=== PATIENT | male | born 1935 | race Caucasian/White ===

== ENCOUNTER 2018-04-03 06:17 | Inpatient (IN) | payer MEDICARE, OTHER ==
[2018-04-03] MEDS ORDERED: ACETAMINOPHEN 325 MG TABLET PO ONE (06:47)
[2018-04-03] MEDS ORDERED: ONDANSETRON HCL INJ/PF 4 MG/2 ML SDV IV ONE (07:25)
[2018-04-03] MEDS ORDERED: MORPHINE SULFATE 10 MG/ML INJ IV ONE (07:25)
[2018-04-03 08:21] LABS: ALANINE AMINOTRANSFERASE 21 U/L (21-72); ALBUMIN 4.1 g/dL (3.5-5.0); ALKALINE PHOSPHATASE 75 U/L (38-126); ANION GAP 12 (5-19); ASPARTATE AMINO TRANSFERASE 31 U/L (17-59); BILIRUBIN,DIRECT 0.1 mg/dL (0.0-0.4); BILIRUBIN,TOTAL 1.1 mg/dL (0.2-1.3); BLOOD UREA NITROGEN 13 mg/dL (7-20); CALCIUM 9.9 mg/dL (8.4-10.2); CARBON DIOXIDE 29 mmol/L (22-30); CHLORIDE 102 mmol/L (98-107); GLUCOSE 115 mg/dL (75-110); POTASSIUM 4.4 mmol/L (3.6-5.0); SODIUM 143.1 mmol/L (137-145); TOTAL PROTEIN 7.2 g/dL (6.3-8.2)
--- NOTE | 2018-04-03 08:46 | ER Document Report ---
ED Fall - General Chief Complaint: Fall Stated Complaint: FALL Time Seen by Provider: 04/03/18 07:15 Notes: Patient is an 82-year-old male resident of [facility] who presents to the emergency room with a right knee pain. Patient states he was trying to get out of bed when he slipped and fell landing on his right hip. Patient is currently complaining of right groin and right knee pain. Patient denies hitting his head or loss of consciousness or vomiting. Patient is alone in the hospital room, paperwork from [employer] does state that the patient has a history of dementia. Patient is able to tell you the date and current events. Patient states only pain is right hip. Patient denies feeling lightheaded, dizzy, chest pain or shortness of breath. Past medical history: COPD, dementia, GERD, hyperlipidemia, hypertension Medications: Albuterol, potassium, Prilosec, simvastatin, Lasix, Aricept, aspirin Allergies: Altace Patient is a DNR, with paperwork at patient's bedside. TRAVEL OUTSIDE OF THE [place] IN LAST 30 DAYS: Yes - Related data Allergies/Adverse Reactions: No Known Allergies Allergy (Verified 10/14/15 16:46) Past Medical History - General Information source: Patient, Transfer Record - Social History Smoking Status: Unknown if Ever Smoked Lives with: [facility] Family History: Reviewed & Not Pertinent Patient has suicidal ideation: No Patient has homicidal ideation: No - Past Medical History Cardiac Medical History: Reports: Hx Hypercholesterolemia, Hx Hypertension Pulmonary Medical History: Reports: Hx Bronchitis, Hx COPD Renal/ Medical History: Denies: Hx Peritoneal Dialysis Musculoskeletal Medical History: Reports Hx Arthritis Psychiatric Medical History: Reports: Hx Dementia Past Surgical History: Reports: Hx Orthopedic Surgery - Left knee replacement - Immunizations Hx Diphtheria, Pertussis, Tetanus Vaccination: Yes Hx Pneumococcal Vaccination: 01/11/12 Review of Systems - Review of Systems Constitutional: No symptoms reported EENT: No symptoms reported Cardiovascular: No symptoms reported Respiratory: No symptoms reported Gastrointestinal: See HPI. denies: Vomiting Genitourinary: No symptoms reported Male Genitourinary: No symptoms reported Musculoskeletal: See HPI Skin: No symptoms reported Hematologic/Lymphatic: No symptoms reported Neurological/Psychological: See HPI Physical Exam - Vital signs Vitals: Temp Pulse Resp BP Pulse Ox 98.3 F 59 L 18 169/63 H 98 04/03/18 06:23 04/03/18 06:23 04/03/18 06:23 04/03/18 06:23 04/03/18 06:23 - Notes Notes: GENERAL: Alert, interacts well. No acute distress. HEAD: Normocephalic, atraumatic. EYES: Pupils equal, round, and reactive to light. Extraocular movements intact. ENT: Oral mucosa moist, tongue midline. Nares patent, no nasal septal hematoma, TM's intact, no hemotympanum NECK: Full range of motion. Supple. Trachea midline. LUNGS: Clear to auscultation bilaterally, no wheezes, rales, or rhonchi. No respiratory distress. HEART: Regular rate and rhythm. No murmur ABDOMEN: Soft, non-tender. Non-distended. Bowel sounds present in all 4 quadrants. EXTREMITIES: Moves all 4 extremities spontaneously. No edema, normal radial and dorsalis pedis pulses bilaterally. No cyanosis. Right hip externally rotated, right knee bent in position of comfort for patient. PMS present bilateral lower extremities. Abrasion noted right knee. BACK: no cervical, thoracic, lumbar midline tenderness. No saddle anesthesia, normal distal neurovascular exam. NEUROLOGICAL: Alert and oriented x3. Normal speech. cranial nerves II through XII grossly intact. PSYCH: Normal affect, normal mood. SKIN: Warm, dry, normal turgor. Course - Re-evaluation Re-evalutation: Discussed case with Dr. Grady who requests admitting the patient to the hospitalist. Discussed case with Dr Barrett who agrees with admission. Patiently currently sleeping in the emergency room without pain after administration of Dilaudid. - Vital Signs Vital signs: Temp Pulse Resp BP Pulse Ox 97.7 F 97 20 162/75 H 95 04/03/18 18:00 04/03/18 18:00 04/03/18 18:00 04/03/18 18:00 04/03/18 18:00 - Laboratory Result Diagrams: 04/03/18 09:30 04/03/18 07:43 Laboratory results interpreted by me: 04/03/18 04/03/18 07:43 09:30 WBC 12.0 H RDW 14.4 H Seg Neutrophils % 80.0 H Lymphocytes % 10.3 L Absolute Neutrophils 9.6 H Glucose 115 H Discharge - Discharge Clinical Impression: Fracture of proximal end of left femur Qualifiers: Encounter type: initial encounter Fracture type: closed Qualified Code(s): S72.002A - Fracture of unspecified part of neck of left femur, initial encounter for closed fracture Condition: Stable Disposition: ADMITTED INPATIENT Admitting Provider: [facility] Admitted: Surgical Floor
--- NOTE | 2018-04-03 08:56 | RADIOLOGY REPORT (SQ) ---
EXAM DESCRIPTION: HIP RIGHT AP/LATERAL COMPLETED DATE/TIME: 04/03/2018 8:39 am REASON FOR STUDY: pain rolled over in bed, felt a pop, sudden right hip pain COMPARISON: None. NUMBER OF VIEWS: Two views. TECHNIQUE: AP pelvis and additional frog-leg view of the right hip. LIMITATIONS: None. FINDINGS: MINERALIZATION: Osteopenic RIGHT HIP: Acute non angulated intertrochanteric fracture right proximal femur. Mild medial displace ment of the lesser trochanter. Right hip joint space is maintained. No dislocation LEFT HIP: No fracture or dislocation. No worrisome bone lesions. PUBIS AND ISCHIUM: No fracture. PELVIS: No fracture. SACRUM: No fracture or dislocation. No worrisome bone lesions. LOWER LUMBAR SPINE: No fracture or dislocation. No worrisome bone lesions. No significant disc disea se. SOFT TISSUES: Surgical clips in the right and left internal iliac regions. Atherosclerotic arterial vascular calcification OTHER: No other significant finding. IMPRESSION: Acute nonangulated right proximal femoral intertrochanteric fracture. TECHNICAL DOCUMENTATION: JOB ID: [id number]- All Rights Reserved Reading location - IP/workstation name: [email or web address]
--- NOTE | 2018-04-03 08:57 | RADIOLOGY REPORT (SQ) ---
EXAM DESCRIPTION: FEMUR RIGHT COMPLETED DATE/TIME: 04/03/2018 8:40 am REASON FOR STUDY: pain COMPARISON: Right hip and right knee films same date NUMBER OF VIEWS: Two views. TECHNIQUE: Two radiographic images acquired of the right femur to include hip and knee in at least o ne projection. LIMITATIONS: None. FINDINGS: MINERALIZATION: Osteopenic BONES: Acute right proximal femur intertrochanteric fracture with mild medial displacement of the les ser trochanter fragment. Remainder of the right femur is intact. SOFT TISSUES: No obvious swelling or foreign body. OTHER: No other significant finding. IMPRESSION: Acute right proximal femur intertrochanteric fracture with mild medial displacement of t he lesser trochanter fragment. TECHNICAL DOCUMENTATION: JOB ID: [id number] [employer]- All Rights Reserved Reading location - IP/workstation name: [email or web address]
--- NOTE | 2018-04-03 08:59 | RADIOLOGY REPORT (SQ) ---
EXAM DESCRIPTION: KNEE RIGHT 4 VIEWS COMPLETED DATE/TIME: 04/03/2018 8:39 am REASON FOR STUDY: pain COMPARISON: None. NUMBER OF VIEWS: Two views. TECHNIQUE: AP and lateral radiographic images acquired of the right knee. LIMITATIONS: Limited lateral view FINDINGS: MINERALIZATION: Normal. BONES: No acute fracture. JOINT: No effusion.High-grade joint space narrowing along the medial compartment, lateral compartment , and patellofemoral compartment right knee SOFT TISSUES: No soft tissue swelling. No radio-opaque foreign body. OTHER: No other significant finding. IMPRESSION: No acute fracture right knee. Tricompartment osteoarthritis TECHNICAL DOCUMENTATION: JOB ID: [id number] [employer]- All Rights Reserved Reading location - IP/workstation name: [email or web address]
[2018-04-03] MEDS ORDERED: HYDROMORPHONE HCL INJ/PF 2 MG/ML AMPULE IV ONE ×2 (09:29→12:13)
[2018-04-03 09:40] LABS: ABSOLUTE BASOPHILS # (AUTO) 0.1 10^3/uL (0.0-0.2); ABSOLUTE EOSINOPHILS # (AUTO) 0.3 10^3/uL (0.0-0.6); ABSOLUTE LYMPHOCYTES (AUTO) 1.2 10^3/uL (0.5-4.7); ABSOLUTE MONOCYTES (AUTO) 0.8 10^3/uL (0.1-1.4); ABSOLUTE NEUT (AUTO) 9.6 10^3/uL (1.7-8.2); BASOPHILS % (AUTO) 0.8 % (0-2); EOSINOPHILS % (AUTO) 2.2 % (0-6); HEMATOCRIT 44.1 % (37.9-51.0); HEMOGLOBIN 15.1 g/dL (13.5-17.0); LYMPHOCYTES % (AUTO) 10.3 % (13-45); MEAN CORPUSCULAR HEMOGLOBIN 28.9 pg (27.0-33.4); MEAN CORPUSCULAR HGB CONC 34.2 g/dL (32.0-36.0); MEAN CORPUSCULAR VOLUME 85 fl (80-97); MONOCYTES % (AUTO) 6.7 % (3-13); PLATELET COUNT 176 10^3/uL (150-450); RED BLOOD COUNT 5.21 10^6/uL (4.35-5.55); RED CELL DISTRIBUTION WIDTH 14.4 % (11.5-14.0); TOTAL CELLS COUNTED % (AUTO) 100 %
[2018-04-03] MEDS ORDERED: MAGNESIUM HYDROXIDE SUSP 30 ML UDCUP PO PRN (16:27)
[2018-04-03] MEDS ORDERED: NORMAL SALINE 1000 ML 1,000 ML IV PRN (16:27)
[2018-04-03] MEDS ORDERED: ONDANSETRON HCL INJ/PF 4 MG/2 ML SDV IV PRN (16:27)
[2018-04-03] MEDS ORDERED: ACETAMINOPHEN 325 MG TABLET PO PRN (16:27)
[2018-04-03] MEDS ORDERED: HYDROMORPHONE HCL INJ/PF 2 MG/ML AMPULE IV PRN (16:41)
--- NOTE | 2018-04-03 16:52 | PDOC H&P ---
History of Present Illness Admission Date/PCP: 04/03/18 13:48 KIET CASTAÑEDA MD Patient complains of: Right hip pain status post fall History of Present Illness: DENISE HARDWICK is a 82 year old male Past Medical History Cardiac Medical History: Reports: Hyperlipidema, Hypertension Pulmonary Medical History: Reports: Bronchitis, Chronic Obstructive Pulmonary Disease (COPD) GI Medical History: Reports: Gastroesophageal Reflux Disease Musculoskeltal Medical History: Reports: Arthritis Psychiatric Medical History: Reports: Dementia Past Surgical History Past Surgical History: Reports: Orthopedic Surgery - Left knee replacement Social History Information Source: Dr. Hernandez Lives with: [facility] Smoking Status: Former Smoker Last Time Smoked: More than 10 years ago Frequency of Alcohol Use: None Hx Recreational Drug Use: No Hx Prescription Drug Abuse: No - Advance Directive Resuscitation Status: Do Not Resuscitate Family History Family History: Reviewed & Not Pertinent Parental Family History Reviewed: Yes Children Family History Reviewed: Yes Sibling(s) Family History Reviewed.: Yes Medication/Allergy Home Medications: Acetaminophen [Tylenol 325 mg Tablet] 650 mg PO Q6HP PRN 04/03/18 Albuterol Sulfate [Ventolin 0.083% Neb 2.5 mg/3 mL Ampul] 2.5 mg NEB RTQ4HP PRN 04/03/18 Albuterol Sulfate [Ventolin 0.083% Neb 2.5 mg/3 mL Ampul] 2.5 mg NEB [id number] Aspirin [Aspirin 81 mg Chewable Tablet] 81 mg PO DAILY 04/03/18 Diltiazem HCl [Diltiazem 24Hr Cd] 180 mg PO DAILY 04/03/18 Donepezil HCl [Aricept] 10 mg PO QHS 04/03/18 Fexofenadine HCl [Linette] 180 mg PO DAILY 04/03/18 Fluticasone/Salmeterol [Advair 250-50 Diskus 14 Dose/Diskus] 1 puff IH BID 04/03 Furosemide [Lasix 40 mg Tablet] 40 mg PO DAILY 04/03/18 Magnesium Hydroxide [Milk of Magnesia 30 ml Udcup] 30 ml PO DAILYP PRN 04/03/18 Omeprazole 20 mg PO DAILY 04/03/18 Potassium Chloride [K-Tab ER] 20 meq PO DAILY 04/03/18 Simvastatin [Zocor 10 mg Tablet] 10 mg PO QHS 04/03/18 Tiotropium [place] [Spiriva Handihaler 5 Cap/Kit (18 Mcg/Cap)] 18 mcg IH DAILY 04/03/18 Allergies/Adverse Reactions: No Known Allergies Allergy (Verified 10/14/15 16:46) Review of Systems All systems: as per PMH Physical Exam Vital Signs: Temp Pulse Resp BP Pulse Ox 98.6 F 59 L 16 141/60 H 97 04/03/18 16:01 04/03/18 06:23 04/03/18 16:01 04/03/18 16:01 04/03/18 16:01 General appearance: PRESENT: severe distress Eye exam: PRESENT: conjunctival injection Neck exam: PRESENT: carotid bruit. ABSENT: JVD Respiratory exam: PRESENT: rhonchi. ABSENT: wheezes Cardiovascular exam: PRESENT: RRR, +S1, +S2 GI/Abdominal exam: PRESENT: normal bowel sounds, soft Musculoskeletal exam: PRESENT: tenderness Neurological exam: PRESENT: awake, oriented to person, oriented to place. ABSENT: oriented to time Results Impressions: Femur X-Ray 04/03/18 07:24 IMPRESSION: Acute right proximal femur intertrochanteric fracture with mild medial displacement of the lesser trochanter fragment. Hip/Pelvis X-Ray 04/03/18 07:24 IMPRESSION: Acute nonangulated right proximal femoral intertrochanteric fracture. Knee X-Ray 04/03/18 07:24 IMPRESSION: No acute fracture right knee. Tricompartment osteoarthritis Assessment & Plan - Diagnosis (1) Closed comminuted intertrochanteric fracture of proximal end of right femur Qualifiers: Encounter type: initial encounter Qualified Code(s): S72.141A - Displaced intertrochanteric fracture of right femur, initial encounter for closed fracture Is this a current diagnosis for this admission?: Yes Plan: Orthopedic consultation (2) COPD (chronic obstructive pulmonary disease) Qualifiers: COPD type: emphysema Is this a current diagnosis for this admission?: Yes Plan: We will continue current medications and consult pulmonology to optimize preop and postop treatment (3) Hypertension Qualifiers: Hypertension type: essential hypertension Qualified Code(s): I10 - Essential (primary) hypertension Is this a current diagnosis for this admission?: Yes Plan: Continue current medications (4) Small vessel disease Is this a current diagnosis for this admission?: Yes Plan: Continue current medications (5) Hyperlipidemia Is this a current diagnosis for this admission?: Yes Plan: Continue current treatment (6) Dementia Qualifiers: Dementia type: vascular dementia Is this a current diagnosis for this admission?: Yes Plan: Continue current treatment
[2018-04-03] MEDS: DOCUSATE SODIUM 100 MG CAPSULE PO SCH (17:34)
--- NOTE | 2018-04-03 20:01 | PDOC CONSULTATION ---
Consultation Consult Date: 04/03/18 Consult reason:: Right intertrochanteric hip fracture History of Present Illness Admission Date/PCP: 04/03/18 13:48 KIET CASTAÑEDA MD History of Present Illness: DENISE HARDWICK is a 82 year old male status post mechanical fall onto right hip suffering placed intertrochanteric hip fracture. Patient was brought by EMS and x-rays and examination was induced with the above fracture. Prior to that patient did ambulate. Denies any numbness or tingling or paresthesias or any loss of consciousness. Any previous surgical or trauma to the hip is negative as well. Does complain of deformity inability to weight-bear. Pain 5 out of 5 with motion but at rest the pain is 3 out of 5. Describes the pain to be anterior groin. Past Medical History Cardiac Medical History: Reports: Hyperlipidema, Hypertension Pulmonary Medical History: Reports: Bronchitis, Chronic Obstructive Pulmonary Disease (COPD) GI Medical History: Reports: Gastroesophageal Reflux Disease Musculoskeltal Medical History: Reports: Arthritis Psychiatric Medical History: Reports: Dementia Past Surgical History Past Surgical History: Reports: Orthopedic Surgery - Left knee replacement Social History Lives with: [facility] Smoking Status: Unknown if Ever Smoked Last Time Smoked: More than 10 years ago Frequency of Alcohol Use: None Hx Recreational Drug Use: No Hx Prescription Drug Abuse: No - Advance Directive Resuscitation Status: Do Not Resuscitate Family History Family History: Reviewed & Not Pertinent Parental Family History Reviewed: No Children Family History Reviewed: No Sibling(s) Family History Reviewed.: No Medication/Allergy Home Medications: Acetaminophen [Tylenol 325 mg Tablet] 650 mg PO Q6HP PRN 04/03/18 Albuterol Sulfate [Ventolin 0.083% Neb 2.5 mg/3 mL Ampul] 2.5 mg NEB RTQ4HP PRN 04/03/18 Albuterol Sulfate [Ventolin 0.083% Neb 2.5 mg/3 mL Ampul] 2.5 mg NEB [id number] Aspirin [Aspirin 81 mg Chewable Tablet] 81 mg PO DAILY 04/03/18 Diltiazem HCl [Diltiazem 24Hr Cd] 180 mg PO DAILY 04/03/18 Donepezil HCl [Aricept] 10 mg PO QHS 04/03/18 Fexofenadine HCl [Linette] 180 mg PO DAILY 04/03/18 Fluticasone/Salmeterol [Advair 250-50 Diskus 14 Dose/Diskus] 1 puff IH BID 04/03 Furosemide [Lasix 40 mg Tablet] 40 mg PO DAILY 04/03/18 Magnesium Hydroxide [Milk of Magnesia 30 ml Udcup] 30 ml PO DAILYP PRN 04/03/18 Omeprazole 20 mg PO DAILY 04/03/18 Potassium Chloride [K-Tab ER] 20 meq PO DAILY 04/03/18 Simvastatin [Zocor 10 mg Tablet] 10 mg PO QHS 04/03/18 Tiotropium [place] [Spiriva Handihaler 5 Cap/Kit (18 Mcg/Cap)] 18 mcg IH DAILY 04/03/18 Allergies/Adverse Reactions: No Known Allergies Allergy (Verified 10/14/15 16:46) Review of Systems Review of Systems: Constitutional: [PRESENT: as per HPI. ABSENT: chills, fever(s), headache(s), weight gain, weight loss] Eyes: [ABSENT: visual disturbances] Ears: [ABSENT: hearing changes] Cardiovascular: [ABSENT: chest pain, dyspnea on exertion, edema, orthropnea, palpitations] Respiratory: [ABSENT: cough, hemoptysis] Gastrointestinal: [ABSENT: abdominal pain, constipation, diarrhea, hematemesis, hematochezia, nausea, vomiting] Genitourinary: [ABSENT: dysuria, hematuria] Musculoskeletal: [ABSENT: joint swelling] Integumentary: [ABSENT: rash, wounds] Neurological: [ABSENT: abnormal gait, abnormal speech, confusion, dizziness, focal weakness, syncope] Psychiatric: [ABSENT: anxiety, depression, homicidal ideation, suicidal ideation ] Endocrine: [ABSENT: cold intolerance, heat intolerance, menstrual abnormalities , polydipsia, polyuria] Hematologic/Lymphatic: [ABSENT: easy bleeding, easy bruising, lymphadenopathy] Constitutional: PRESENT: weakness. ABSENT: fever(s) Eyes: ABSENT: visual disturbances Ears: ABSENT: hearing changes Physical Exam Vital Signs: Temp Pulse Resp BP Pulse Ox 37.1 C 93 17 158/70 H 96 04/03/18 19:29 04/03/18 19:29 04/03/18 19:29 04/03/18 19:29 04/03/18 19:29 Intake & Output 04/02/18 04/03/18 04/04/18 06:59 06:59 06:59 Weight 91 kg General appearance: PRESENT: no acute distress, well-nourished Head exam: PRESENT: atraumatic, normocephalic Eye exam: PRESENT: EOMI, other - Symmetric pinpoint round pupils. Ear exam: PRESENT: normal external ear exam. ABSENT: drainage Mouth exam: PRESENT: neck supple Neck exam: ABSENT: lymphadenopathy, tenderness, thyromegaly Respiratory exam: PRESENT: symmetrical, unlabored. ABSENT: accessory muscle use , tachypnea Cardiovascular exam: PRESENT: RRR Pulses: PRESENT: normal dorsalis pedis pul Vascular exam: PRESENT: normal capillary refill GI/Abdominal exam: PRESENT: soft. ABSENT: guarding, organolmegaly, tenderness Neurological exam: PRESENT: alert, awake, oriented to person, oriented to place , oriented to time, oriented to situation Psychiatric exam: PRESENT: appropriate affect, normal mood Skin exam: PRESENT: intact, normal color. ABSENT: erythema, skin tears Adult Front & Back Image: 1 - Right lower extremity is shortened and externally rotated. Able to flex and extend the toes and ankle without difficulty. Good sensation to light touch. Good capillary refill. Pain with any attempted logroll. Tender palpation over the groin. Results Impressions: Femur X-Ray 04/03/18 07:24 IMPRESSION: Acute right proximal femur intertrochanteric fracture with mild medial displacement of the lesser trochanter fragment. Hip/Pelvis X-Ray 04/03/18 07:24 IMPRESSION: Acute nonangulated right proximal femoral intertrochanteric fracture. Knee X-Ray 04/03/18 07:24 IMPRESSION: No acute fracture right knee. Tricompartment osteoarthritis Assessment & Plan - Diagnosis (1) Closed comminuted intertrochanteric fracture of proximal end of right femur Qualifiers: Encounter type: initial encounter Qualified Code(s): S72.141A - Displaced intertrochanteric fracture of right femur, initial encounter for closed fracture Is this a current diagnosis for this admission?: Yes Plan: 82-year-old gentleman with right intertrochanteric hip fracture. Fracture is amenable to nailing. Discussed the benefits of progressing with therapy and and weightbearing as tolerated with assistance. Discussed the risk and benefits of surgery and the patient has agreed to consent. Because she has been consulted for his COPD. Patient is n.p.o. and will plan to proceed with surgery tomorrow in the afternoon. The meantime will be bedrest pain control
[2018-04-03] MEDS: IPRATROPIUM/ALBUTEROL 0.5-2.5 MG/3 ML AMPUL NEB SCH (20:24)
[2018-04-03] MEDS: FLUTICASONE/SALMETEROL DISKUS 250-50 MCG/DOSE IH SCH (20:38)
[2018-04-03] MEDS ORDERED: (PENDING PHARMACY ID) (Donepezil Hcl [Aricept] 10 MG) PO SCH (22:00)
[2018-04-03] MEDS: DONEPEZIL HCL 5 MG TABLET PO SCH (22:30)
[2018-04-04] MEDS: IPRATROPIUM/ALBUTEROL 0.5-2.5 MG/3 ML AMPUL NEB SCH ×4 (02:18→20:02)
[2018-04-04] MEDS: LANSOPRAZOLE 15 MG TAB.RAP.DR PO SCH (05:31)
[2018-04-04 06:45] LABS: ARTERIAL BLOOD H2CO3 1.25 mmol/L (1.05-1.35); ARTERIAL BLOOD HCO3 26.6 mmol/L (20-24); ARTERIAL BLOOD O2 SATURATION 95.2 % (94-98); ARTERIAL BLOOD PCO2 41.6 mmHg (35-45); ARTERIAL BLOOD PH 7.42 (7.35-7.45); ARTERIAL BLOOD PO2 74.2 mmHg (80-100); ARTERIAL BLOOD TOTAL CO2 27.9 mmol/L (23-27)
[2018-04-04 06:46] LABS: ARTERIAL BLOOD FIO2 28%
[2018-04-04 07:02] LABS: ABSOLUTE BASOPHILS # (AUTO) 0.1 10^3/uL (0.0-0.2); ABSOLUTE EOSINOPHILS # (AUTO) 0.3 10^3/uL (0.0-0.6); ABSOLUTE LYMPHOCYTES (AUTO) 1.3 10^3/uL (0.5-4.7); ABSOLUTE MONOCYTES (AUTO) 1.1 10^3/uL (0.1-1.4); ABSOLUTE NEUT (AUTO) 6.8 10^3/uL (1.7-8.2); BASOPHILS % (AUTO) 0.9 % (0-2); EOSINOPHILS % (AUTO) 3.2 % (0-6); HEMATOCRIT 42.7 % (37.9-51.0); HEMOGLOBIN 14.4 g/dL (13.5-17.0); LYMPHOCYTES % (AUTO) 13.9 % (13-45); MEAN CORPUSCULAR HEMOGLOBIN 28.9 pg (27.0-33.4); MEAN CORPUSCULAR HGB CONC 33.9 g/dL (32.0-36.0); MEAN CORPUSCULAR VOLUME 85 fl (80-97); MONOCYTES % (AUTO) 11.2 % (3-13); PLATELET COUNT 154 10^3/uL (150-450); RED CELL DISTRIBUTION WIDTH 14.6 % (11.5-14.0); SEGMENTED NEUTROPHILS % (AUTO) 70.8 % (42-78); TOTAL CELLS COUNTED % (AUTO) 100 %; WHITE BLOOD COUNT 9.6 10^3/uL (4.0-10.5)
[2018-04-04 07:29] LABS: ANION GAP 8 (5-19); BLOOD UREA NITROGEN 17 mg/dL (7-20); CALCIUM 9.4 mg/dL (8.4-10.2); CARBON DIOXIDE 30 mmol/L (22-30); CHLORIDE 103 mmol/L (98-107); GLUCOSE 119 mg/dL (75-110); POTASSIUM 4.2 mmol/L (3.6-5.0); SODIUM 140.8 mmol/L (137-145)
--- NOTE | 2018-04-04 08:56 | RADIOLOGY REPORT (SQ) ---
EXAM DESCRIPTION: CHEST SINGLE VIEW COMPLETED DATE/TIME: 04/04/2018 8:43 am REASON FOR STUDY: COPD COMPARISON: Chest films 07/06/2015, 05/21/2014 EXAM PARAMETERS: NUMBER OF VIEWS: One view. TECHNIQUE: Single frontal radiographic view of the chest acquired. RADIATION DOSE: NA LIMITATIONS: None. FINDINGS: LUNGS AND PLEURA: Minimal airspace disease in the lingular apex. Lungs are hyperinflated and hyperlucent from obstructive disease. No pleural effusion. No pneumotho rax. MEDIASTINUM AND HILAR STRUCTURES: No masses. Contour normal. HEART AND VASCULAR STRUCTURES: Heart normal in size. Normal vasculature. BONES: Osteoporotic. No acute findings HARDWARE: None in the chest. OTHER: No other significant finding. IMPRESSION: Obstructive lung disease Minimal airspace disease in the lingular apex TECHNICAL DOCUMENTATION: JOB ID: [id number] [employer]- All Rights Reserved Reading location - IP/workstation name: [email or web address]
--- NOTE | 2018-04-04 08:58 | PDOC PROGRESS REPORT ---
Subjective Progress Note for:: 04/04/18 Subjective:: The patient appears to be doing better this morning. His pain is relatively well controlled. He is presently being seen by the orthopedic and scheduled for surgery. We will continue with cardiology and pulmonary postop. Reason For Visit: HIP FRACTURE, COPD, HYPERTENSION,DEMENTIA,SMALL Physical Exam Vital Signs: Temp Pulse Resp BP Pulse Ox 99.9 F 90 16 153/60 H 92 04/03/18 23:23 04/04/18 02:20 04/04/18 02:20 04/03/18 23:23 04/04/18 02:20 Intake & Output 04/03/18 04/04/18 04/05/18 06:59 06:59 06:59 Intake Total 200 Balance 200 Weight 91.2 kg General appearance: PRESENT: mild distress Head exam: PRESENT: atraumatic Eye exam: PRESENT: conjunctiva pink Neck exam: PRESENT: carotid bruit. ABSENT: JVD Respiratory exam: PRESENT: rhonchi. ABSENT: wheezes Cardiovascular exam: PRESENT: RRR, +S1, +S2 GI/Abdominal exam: PRESENT: normal bowel sounds, soft Extremities exam: PRESENT: tenderness Musculoskeletal exam: PRESENT: tenderness Neurological exam: PRESENT: alert, awake Results Laboratory Results: 04/04/18 06:26 04/04/18 06:26 04/04/18 04/04/18 04/04/18 06:26 06:26 06:26 WBC 9.6 RBC 5.00 Hgb 14.4 Hct 42.7 MCV 85 MCH 28.9 MCHC 33.9 RDW 14.6 H Plt Count 154 Seg Neutrophils % 70.8 Lymphocytes % 13.9 Monocytes % 11.2 Eosinophils % 3.2 Basophils % 0.9 Absolute Neutrophils 6.8 Absolute Lymphocytes 1.3 Absolute Monocytes 1.1 Absolute Eosinophils 0.3 Absolute Basophils 0.1 Carbonic Acid HCO3/H2CO3 Ratio ABG pH ABG pCO2 ABG pO2 ABG HCO3 ABG O2 Saturation ABG Base Excess FiO2 Sodium 140.8 Potassium 4.2 Chloride 103 Carbon Dioxide 30 Anion Gap 8 BUN 17 Creatinine 0.77 Est GFR ( Amer) > 60 Est GFR (Non-Af Amer) > 60 Glucose 119 H Calcium 9.4 TSH 0.72 04/04/18 06:30 WBC RBC Hgb Hct MCV MCH MCHC RDW Plt Count Seg Neutrophils % Lymphocytes % Monocytes % Eosinophils % Basophils % Absolute Neutrophils Absolute Lymphocytes Absolute Monocytes Absolute Eosinophils Absolute Basophils Carbonic Acid 1.25 HCO3/H2CO3 Ratio 21:1 ABG pH 7.42 ABG pCO2 41.6 ABG pO2 74.2 L ABG HCO3 26.6 H ABG O2 Saturation 95.2 ABG Base Excess 2.0 FiO2 28% Sodium Potassium Chloride Carbon Dioxide Anion Gap BUN Creatinine Est GFR ( Amer) Est GFR (Non-Af Amer) Glucose Calcium TSH Impressions: Femur X-Ray 04/03/18 07:24 IMPRESSION: Acute right proximal femur intertrochanteric fracture with mild medial displacement of the lesser trochanter fragment. Hip/Pelvis X-Ray 04/03/18 07:24 IMPRESSION: Acute nonangulated right proximal femoral intertrochanteric fracture. Knee X-Ray 04/03/18 07:24 IMPRESSION: No acute fracture right knee. Tricompartment osteoarthritis Assessment & Plan - Diagnosis (1) Closed comminuted intertrochanteric fracture of proximal end of right femur Qualifiers: Encounter type: initial encounter Qualified Code(s): S72.141A - Displaced intertrochanteric fracture of right femur, initial encounter for closed fracture Is this a current diagnosis for this admission?: Yes Plan: Surgery this afternoon (2) COPD (chronic obstructive pulmonary disease) Qualifiers: COPD type: emphysema Is this a current diagnosis for this admission?: Yes Plan: Continue current medications. (3) Hypertension Qualifiers: Hypertension type: essential hypertension Qualified Code(s): I10 - Essential (primary) hypertension Is this a current diagnosis for this admission?: Yes Plan: Continue current medications (4) Small vessel disease Is this a current diagnosis for this admission?: Yes Plan: Continue current medications (5) Hyperlipidemia Is this a current diagnosis for this admission?: Yes (6) Dementia Qualifiers: Dementia type: vascular dementia Is this a current diagnosis for this admission?: Yes Plan: Continue current treatment
[2018-04-04] MEDS: ENOXAPARIN SODIUM INJ 40 MG/0.4 ML DISP.SYRIN SUBCUT SCH (09:18)
[2018-04-04] MEDS: ASPIRIN 81 MG TABLET, CHEWABLE PO SCH (09:36)
[2018-04-04] MEDS: FLUTICASONE/SALMETEROL DISKUS 250-50 MCG/DOSE IH SCH (09:36)
[2018-04-04] MEDS: DILTIAZEM HCL 180 MG CAPSULE.CR PO SCH (09:36)
[2018-04-04] MEDS: DOCUSATE SODIUM 100 MG CAPSULE PO SCH ×2 (09:37→17:04)
--- NOTE | 2018-04-04 09:58 | PDOC CONSULTATION ---
Consultation Consult Date: 04/04/18 Attending physician:: KIET CASTAÑEDA Consult reason:: emphysema/ History of Present Illness Admission Date/PCP: 04/03/18 13:48 KIET CASTAÑEDA MD History of Present Illness: DENISE HARDWICK is a 82 year old male, demented living in assisted care and fractured hip history of COPD and takes bronchodilator therapy he underwent pulmonary function test in thousand 14 that showed severe obstructive ventilatory defect as well as air trapping and a decrease in diffusion capacity no additional PFTs or spirometry are available at this time denies any coughing or hemoptysis. Above the patient is demented little if any history could be directly obtained. He fell sustaining hip fracture and is scheduled for surgery later today. Past Medical History Cardiac Medical History: Reports: Hyperlipidema, Hypertension Pulmonary Medical History: Reports: Bronchitis, Chronic Obstructive Pulmonary Disease (COPD) GI Medical History: Reports: Gastroesophageal Reflux Disease Musculoskeltal Medical History: Reports: Arthritis Psychiatric Medical History: Reports: Dementia Hematology: Denies: Sickle Cell Disease Infectious Medical History: Denies: HIV Past Surgical History Past Surgical History: Reports: Orthopedic Surgery - Left knee replacement Social History Information Source: [facility] Records Lives with: Long-Term Smoking Status: Former Smoker Last Time Smoked: More than 10 years ago Frequency of Alcohol Use: None Hx Recreational Drug Use: No Hx Prescription Drug Abuse: No Do you have pets?: No - Advance Directive Resuscitation Status: Do Not Resuscitate Family History Parental Family History Reviewed: No Children Family History Reviewed: No Sibling(s) Family History Reviewed.: No Medication/Allergy Home Medications: Acetaminophen [Tylenol 325 mg Tablet] 650 mg PO Q6HP PRN 04/03/18 Albuterol Sulfate [Ventolin 0.083% Neb 2.5 mg/3 mL Ampul] 2.5 mg NEB RTQ4HP PRN 04/03/18 Albuterol Sulfate [Ventolin 0.083% Neb 2.5 mg/3 mL Ampul] 2.5 mg NEB [id number] Aspirin [Aspirin 81 mg Chewable Tablet] 81 mg PO DAILY 04/03/18 Diltiazem HCl [Diltiazem 24Hr Cd] 180 mg PO DAILY 04/03/18 Donepezil HCl [Aricept] 10 mg PO QHS 04/03/18 Fexofenadine HCl [Linette] 180 mg PO DAILY 04/03/18 Fluticasone/Salmeterol [Advair 250-50 Diskus 14 Dose/Diskus] 1 puff IH BID 04/03 Furosemide [Lasix 40 mg Tablet] 40 mg PO DAILY 04/03/18 Magnesium Hydroxide [Milk of Magnesia 30 ml Udcup] 30 ml PO DAILYP PRN 04/03/18 Omeprazole 20 mg PO DAILY 04/03/18 Potassium Chloride [K-Tab ER] 20 meq PO DAILY 04/03/18 Simvastatin [Zocor 10 mg Tablet] 10 mg PO QHS 04/03/18 Tiotropium [place] [Spiriva Handihaler 5 Cap/Kit (18 Mcg/Cap)] 18 mcg IH DAILY 04/03/18 Docusate Sodium [Colace 100 mg Capsule] 100 mg PO BID capsule 04/08/18 Oxycodone HCl [Oxy-Ir 5 mg Tablet] 5 mg PO Q4HP PRN #60 tablet 04/08/18 Vit/Dha [ Multi + Dha Capsule] 1 cap PO DAILY capsule Rivaroxaban [Xarelto 10 mg Tablet] 10 mg PO WSUPPER #35 tablet 04/08/18 Allergies/Adverse Reactions: No Known Allergies Allergy (Verified 10/14/15 16:46) Review of Systems ROS unobtainable: Due to mental status Physical Exam Vital Signs: Temp Pulse Resp BP Pulse Ox 99.9 F 90 16 153/60 H 92 04/03/18 23:23 04/04/18 02:20 04/04/18 02:20 04/03/18 23:23 04/04/18 02:20 Intake & Output 04/03/18 04/04/18 04/05/18 06:59 06:59 06:59 Intake Total 200 Balance 200 Weight 91.2 kg General appearance: PRESENT: no acute distress, cooperative, disheveled, well- developed, well-nourished Head exam: PRESENT: atraumatic, normocephalic Eye exam: PRESENT: conjunctiva pale, EOMI. ABSENT: nystagmus, periorbital swelling, scleral icterus Mouth exam: PRESENT: dry mucosa, neck supple, tongue midline Neck exam: ABSENT: carotid bruit, JVD, lymphadenopathy, thyromegaly, tracheal deviation, tracheostomy Respiratory exam: PRESENT: decreased breath sounds, prolonged expiratory phas, rhonchi, symmetrical, unlabored. ABSENT: retraction, stridor, tachypnea Cardiovascular exam: PRESENT: RRR, +S1, +S2. ABSENT: tachycardia Pulses: PRESENT: normal radial pulses GI/Abdominal exam: PRESENT: soft Extremities exam: ABSENT: calf tenderness, clubbing, joint swelling Musculoskeletal exam: ABSENT: ambulatory, deformity, dislocation Neurological exam: PRESENT: altered, awake Skin exam: PRESENT: dry, warm Results Laboratory Results: 04/04/18 06:26 04/04/18 06:26 04/04/18 04/04/18 04/04/18 06:26 06:26 06:26 WBC 9.6 RBC 5.00 Hgb 14.4 Hct 42.7 MCV 85 MCH 28.9 MCHC 33.9 RDW 14.6 H Plt Count 154 Seg Neutrophils % 70.8 Lymphocytes % 13.9 Monocytes % 11.2 Eosinophils % 3.2 Basophils % 0.9 Absolute Neutrophils 6.8 Absolute Lymphocytes 1.3 Absolute Monocytes 1.1 Absolute Eosinophils 0.3 Absolute Basophils 0.1 Carbonic Acid HCO3/H2CO3 Ratio ABG pH ABG pCO2 ABG pO2 ABG HCO3 ABG O2 Saturation ABG Base Excess FiO2 Sodium 140.8 Potassium 4.2 Chloride 103 Carbon Dioxide 30 Anion Gap 8 BUN 17 Creatinine 0.77 Est GFR ( Amer) > 60 Est GFR (Non-Af Amer) > 60 Glucose 119 H Calcium 9.4 TSH 0.72 04/04/18 06:30 WBC RBC Hgb Hct MCV MCH MCHC RDW Plt Count Seg Neutrophils % Lymphocytes % Monocytes % Eosinophils % Basophils % Absolute Neutrophils Absolute Lymphocytes Absolute Monocytes Absolute Eosinophils Absolute Basophils Carbonic Acid 1.25 HCO3/H2CO3 Ratio 21:1 ABG pH 7.42 ABG pCO2 41.6 ABG pO2 74.2 L ABG HCO3 26.6 H ABG O2 Saturation 95.2 ABG Base Excess 2.0 FiO2 28% Sodium Potassium Chloride Carbon Dioxide Anion Gap BUN Creatinine Est GFR ( Amer) Est GFR (Non-Af Amer) Glucose Calcium TSH Impressions: Femur X-Ray 04/03/18 07:24 IMPRESSION: Acute right proximal femur intertrochanteric fracture with mild medial displacement of the lesser trochanter fragment. Hip/Pelvis X-Ray 04/03/18 07:24 IMPRESSION: Acute nonangulated right proximal femoral intertrochanteric fracture. Knee X-Ray 04/03/18 07:24 IMPRESSION: No acute fracture right knee. Tricompartment osteoarthritis Chest X-Ray 04/04/18 06:00 IMPRESSION: Obstructive lung disease Minimal airspace disease in the lingular apex Assessment & Plan - Diagnosis (1) COPD (chronic obstructive pulmonary disease) Qualifiers: COPD type: emphysema Is this a current diagnosis for this admission?: Yes Plan: First incentive spirometry every hour for 12 hours prior to operation and 12 hours postop, continue current bronchodilator therapy, chest x-ray questionable space disease in the lingula Generic Name Dose Route Start Last Admin Trade Name Freq PRN Reason Stop Dose Admin Tiotropium [place] 1 cap 04/04/18 10:00 04/04/18 09:35 Spiriva Handihaler 5 Cap/Kit (18 Mcg/Cap) IH 05/04/18 09:59 1 cap DAILY ABEL Albuterol/Ipratropium 3 ml 04/03/18 20:00 04/04/18 08:30 Duoneb 3 Ml Ampul NEB 05/03/18 19:59 3 ml RTQ6 ABEL Fluticasone/Salmeterol 1 inh 04/03/18 18:00 04/04/18 09:36 Advair 250-50 Diskus 14 Dose/Diskus IH 05/03/18 17:59 1 inh BID ABEL Just putting a hold on Spiriva and Advair as both a somewhat redundant with the DuoNeb insofar as to have a long-acting muscarinic agent and a long-acting beta agonist (2) Closed comminuted intertrochanteric fracture of proximal end of right femur Qualifiers: Encounter type: initial encounter Qualified Code(s): S72.141A - Displaced intertrochanteric fracture of right femur, initial encounter for closed fracture Is this a current diagnosis for this admission?: Yes Plan: Per orthopedics (3) Dementia Qualifiers: Dementia type: vascular dementia Is this a current diagnosis for this admission?: Yes Plan: As per primary care
[2018-04-04] MEDS ORDERED: TIOTROPIUM BROMIDE DPI 5 CAP/KIT (18 MCG/CAP) IH SCH (10:00)
[2018-04-04] MEDS ORDERED: (PENDING PHARMACY ID) (Diltiazem Hcl [Diltiazem 24hr Cd] 180 MG) PO SCH (10:00)
--- NOTE | 2018-04-04 10:48 | EKG REPORT ---
SEVERITY:- BORDERLINE ECG - SINUS RHYTHM CONSIDER RIGHT VENTRICULAR HYPERTROPHY : Confirmed by: Franky Mendoza 04-Apr-2018 10:47:13
--- NOTE | 2018-04-04 10:48 | EKG REPORT ---
SEVERITY:- OTHERWISE NORMAL ECG - SINUS RHYTHM RIGHT AXIS DEVIATION : Confirmed by: Franky Mendoza 04-Apr-2018 10:47:08
[2018-04-04] MEDS ORDERED: ACETAMINOPHEN 1,000 MG/100 ML RTUPB IV ONE (12:30)
--- NOTE | 2018-04-04 13:10 | PDOC CONSULTATION ---
Consultation Consult Date: 04/04/18 Attending physician:: NIC RAMOS Consult reason:: Preop cardiovascular evaluation History of Present Illness Admission Date/PCP: 04/03/18 13:48 KIET CASTAÑEDA MD Patient complains of: Hip fracture History of Present Illness: DENISE HARDWICK is a 82 year old male with dementia and living in assisted care and fractured hip. Patient has history of COPD and takes bronchodilator therapy. Above the patient is demented little if any history could be directly obtained however on direct questioning patient denied any prior history of heart problems, myocardial infarction, strokes or mini strokes. Currently he is noted to be laying in bed comfortable without any significant complaints. An echocardiogram was being done when patient was evaluated and did not show significant stenotic lesions. Echo quality was technically difficult. He fell sustaining hip fracture and is scheduled for surgery later today. Past Medical History Cardiac Medical History: Reports: Hyperlipidema, Hypertension Pulmonary Medical History: Reports: Bronchitis, Chronic Obstructive Pulmonary Disease (COPD) GI Medical History: Reports: Gastroesophageal Reflux Disease Musculoskeltal Medical History: Reports: Arthritis Psychiatric Medical History: Reports: Dementia Hematology: Denies: Sickle Cell Disease Infectious Medical History: Denies: HIV Past Surgical History Past Surgical History: Reports: Orthopedic Surgery - Left knee replacement Social History Information Source: [facility] Records Lives with: Jail Smoking Status: Former Smoker Last Time Smoked: More than 10 years ago Frequency of Alcohol Use: None Hx Recreational Drug Use: No Hx Prescription Drug Abuse: No - Advance Directive Resuscitation Status: Do Not Resuscitate Family History Family History: Reviewed & Not Pertinent Parental Family History Reviewed: No Children Family History Reviewed: No Sibling(s) Family History Reviewed.: No Medication/Allergy Home Medications: Acetaminophen [Tylenol 325 mg Tablet] 650 mg PO Q6HP PRN 04/03/18 Albuterol Sulfate [Ventolin 0.083% Neb 2.5 mg/3 mL Ampul] 2.5 mg NEB RTQ4HP PRN 04/03/18 Albuterol Sulfate [Ventolin 0.083% Neb 2.5 mg/3 mL Ampul] 2.5 mg NEB [id number] Aspirin [Aspirin 81 mg Chewable Tablet] 81 mg PO DAILY 04/03/18 Diltiazem HCl [Diltiazem 24Hr Cd] 180 mg PO DAILY 04/03/18 Donepezil HCl [Aricept] 10 mg PO QHS 04/03/18 Fexofenadine HCl [Linette] 180 mg PO DAILY 04/03/18 Fluticasone/Salmeterol [Advair 250-50 Diskus 14 Dose/Diskus] 1 puff IH BID 04/03 Furosemide [Lasix 40 mg Tablet] 40 mg PO DAILY 04/03/18 Magnesium Hydroxide [Milk of Magnesia 30 ml Udcup] 30 ml PO DAILYP PRN 04/03/18 Omeprazole 20 mg PO DAILY 04/03/18 Potassium Chloride [K-Tab ER] 20 meq PO DAILY 04/03/18 Simvastatin [Zocor 10 mg Tablet] 10 mg PO QHS 04/03/18 Tiotropium [place] [Spiriva Handihaler 5 Cap/Kit (18 Mcg/Cap)] 18 mcg IH DAILY 04/03/18 Allergies/Adverse Reactions: No Known Allergies Allergy (Verified 10/14/15 16:46) Review of Systems ROS unobtainable: Due to mental status Physical Exam Vital Signs: Temp Pulse Resp BP Pulse Ox 99.2 F 88 16 141/54 H 93 04/04/18 09:00 04/04/18 09:00 04/04/18 09:00 04/04/18 09:00 04/04/18 09:00 Intake & Output 04/03/18 04/04/18 04/05/18 06:59 06:59 06:59 Intake Total 200 Balance 200 Weight 91.2 kg Exam: GENERAL: well-nourished and in no acute distress. Patient is alert but not oriented to place time or person. HEAD: Atraumatic, normocephalic. EYES: Pupils equal round and reactive to light, extraocular movements intact, sclera anicteric, conjunctiva are normal. ENT: TMs normal, nares patent, oropharynx clear without exudates. Moist mucous membranes. No oral ulcerations or bleeding gums noted NECK: supple without lymphadenopathy or JVD. Trachea is central. No cervical or axillary lymphadenopathy noted. Carotids are 2+ LUNGS: Breath sounds bibasilar fine crackles at bases. No significant dullness noted. CHEST: Palpation of chest wall shows no significant chest wall tenderness. HEART: [place] [employer] CHECKER, No PSH, 2/6 CECILIA aortic area, 1/6 almaraz systolic murmur mitral area, rubs or gallops. ABDOMEN: Soft, no significant tenderness appreciated, normoactive bowel sounds. No guarding, no rebound. No rigidity noted . No masses appreciated. EXTREMITIES: Pedal pulses are 1-2+, no calf tenderness noted, Trace + pedal edema noted. No clubbing or cyanosis. NEUROLOGICAL: Patient is alert patient has dementia but is not noted to have any significant focal neurological deficit. PSYCH: Patient cannot participate in a psych exam because of the patient's current mental status, noted to have normal mood however. SKIN: No significant ecchymosis, rash, ulcerations or signs of pruritus noted. MUSCULOSKELETAL EXAM: No significant joint swelling noted. Results Laboratory Results: 04/04/18 06:26 04/04/18 06:26 04/04/18 04/04/18 04/04/18 06:26 06:26 06:26 WBC 9.6 RBC 5.00 Hgb 14.4 Hct 42.7 MCV 85 MCH 28.9 MCHC 33.9 RDW 14.6 H Plt Count 154 Seg Neutrophils % 70.8 Lymphocytes % 13.9 Monocytes % 11.2 Eosinophils % 3.2 Basophils % 0.9 Absolute Neutrophils 6.8 Absolute Lymphocytes 1.3 Absolute Monocytes 1.1 Absolute Eosinophils 0.3 Absolute Basophils 0.1 Carbonic Acid HCO3/H2CO3 Ratio ABG pH ABG pCO2 ABG pO2 ABG HCO3 ABG O2 Saturation ABG Base Excess FiO2 Sodium 140.8 Potassium 4.2 Chloride 103 Carbon Dioxide 30 Anion Gap 8 BUN 17 Creatinine 0.77 Est GFR ( Amer) > 60 Est GFR (Non-Af Amer) > 60 Glucose 119 H Calcium 9.4 TSH 0.72 04/04/18 06:30 WBC RBC Hgb Hct MCV MCH MCHC RDW Plt Count Seg Neutrophils % Lymphocytes % Monocytes % Eosinophils % Basophils % Absolute Neutrophils Absolute Lymphocytes Absolute Monocytes Absolute Eosinophils Absolute Basophils Carbonic Acid 1.25 HCO3/H2CO3 Ratio 21:1 ABG pH 7.42 ABG pCO2 41.6 ABG pO2 74.2 L ABG HCO3 26.6 H ABG O2 Saturation 95.2 ABG Base Excess 2.0 FiO2 28% Sodium Potassium Chloride Carbon Dioxide Anion Gap BUN Creatinine Est GFR ( Amer) Est GFR (Non-Af Amer) Glucose Calcium TSH Impressions: Femur X-Ray 04/03/18 07:24 IMPRESSION: Acute right proximal femur intertrochanteric fracture with mild medial displacement of the lesser trochanter fragment. Hip/Pelvis X-Ray 04/03/18 07:24 IMPRESSION: Acute nonangulated right proximal femoral intertrochanteric fracture. Knee X-Ray 04/03/18 07:24 IMPRESSION: No acute fracture right knee. Tricompartment osteoarthritis Chest X-Ray 04/04/18 06:00 IMPRESSION: Obstructive lung disease Minimal airspace disease in the lingular apex Assessment & Plan - Diagnosis (1) COPD (chronic obstructive pulmonary disease) Qualifiers: COPD type: emphysema Is this a current diagnosis for this admission?: Yes (2) Closed comminuted intertrochanteric fracture of proximal end of right femur Qualifiers: Encounter type: initial encounter Qualified Code(s): S72.141A - Displaced intertrochanteric fracture of right femur, initial encounter for closed fracture Is this a current diagnosis for this admission?: Yes (3) Dementia Qualifiers: Dementia type: vascular dementia Is this a current diagnosis for this admission?: Yes (4) Hyperlipidemia Is this a current diagnosis for this admission?: Yes (5) Hypertension Qualifiers: Hypertension type: essential hypertension Qualified Code(s): I10 - Essential (primary) hypertension Is this a current diagnosis for this admission?: Yes - Notes Notes: Patient in sinus rhythm. Patient has had no angina or angina equivalent symptoms. Patient not in clinical CHF. Patient cleared for surgery. We'll be happy to take care of any cardiac problem as it arises. Patient felt to be at acceptable risk for age. Patient does have COPD and is elderly as well as has dementia therefore does carry higher risk than average but not in the prohibitive range. Recommend good pain control, DVT prophylaxis and pulmonary toilet. Dr. Bhatti similar to cover from tomorrow.
--- NOTE | 2018-04-04 13:13 | XCELERA REPORT ---
[address] [address] Transthoracic Echocardiogram Report Name: DENISE HARDWICK Age: 82 yrs Gender: Male : 1935 Patient Status: Inpatient Patient Location: [facility]^A Study Date: 04/04/2018 09:55 AM Height: 75 in Weight: 201 lb BSA: 2.2 m2 Reason For Study: pre op Ordering Physician: FRANKY CHAPARRO Performed By: Joe Choe Interpretation Summary Study noted to be technically difficult. Overall LVEF is felt to be well preserved. Grade 2 diastolic dysfunction is noted. Aortic valve mobility seems within normal limits without stenosis or regurgitation being noted. Mitral and the tricuspid valve mobility noted to be WNL, without significant stenosis. Trace mitral regurgitation noted. No tricuspid regurgitation noted. Pulmonary valve not well visualized. All chamber sizes noted to be relatively WNL. Minimal pericardial effusion was noted. Measurements are as noted by technologist. MMode/2D Measurements & Calculations Ao root diam: 3.5 cm Ao root area: 9.6 cm2 LA dimension: 3.1 cm Doppler Measurements & Calculations MV E max clive: MV P1/2t max clive: Ao V2 max: LV V1 max P.2 cm/sec 82.5 cm/sec 172.9 cm/sec 6.3 mmHg MV A max cliev: MV P1/2t: 54.3 msec Ao max PG: LV V1 max: 111.1 cm/sec 12.0 mmHg 125.9 cm/sec MV E/A: 0.52 MVA(P1/2t): 4.0 cm2 MV dec slope: 444.8 cm/sec2 MV dec time: 0.20 sec PA V2 max: MV P1/2t-pr_phl: 168.9 cm/sec 54.3 msec PA max P.4 mmHg : FRANKY CHAPARRO > Franky Chaparro
[2018-04-04] MEDS ORDERED: KETAMINE HCL INJ 500 MG/10 ML VIAL ONE ×2 (15:42→17:19)
[2018-04-04] MEDS ORDERED: PROPOFOL INJ 200 MG/20 ML VIAL IV ONE ×2 (15:43→17:20)
[2018-04-04] MEDS ORDERED: FENTANYL CITRATE INJ/PF 100 MCG/2 ML AMPUL ONE ×2 (15:43→17:19)
[2018-04-04] MEDS ORDERED: MIDAZOLAM 2 MG/2 ML INJ ONE ×2 (15:43→17:19)
[2018-04-04] MEDS ORDERED: CEFAZOLIN INJ 1 GM VIAL ONE (17:02)
[2018-04-04] MEDS ORDERED: BUPIVACAINE HCL/DEX-WATER/PF 15 MG/2 ML AMPULE ONE (17:23)
[2018-04-04] MEDS ORDERED: PROMETHAZINE HCL INJ 25 MG/1 ML VIAL IV PRN ×2 (18:10)
[2018-04-04] MEDS ORDERED: DIPHENHYDRAMINE HCL 50 MG/ML VIAL IV PRN (18:10)
[2018-04-04] MEDS ORDERED: MORPHINE SULFATE 10 MG/ML INJ IV PRN (18:10)
[2018-04-04] MEDS ORDERED: FENTANYL CITRATE INJ/PF 100 MCG/2 ML AMPUL IV PRN ×3 (18:10)
[2018-04-04] MEDS ORDERED: MEPERIDINE HCL/PF INJ 25 MG/1 ML DISP.SYRIN IV PRN (18:10)
--- NOTE | 2018-04-04 18:31 | Operative Report ---
Operative Report DATE OF SURGERY: 04/04/18 PREOPERATIVE DIAGNOSIS: Right intertrochanteric hip fracture POSTOPERATIVE DIAGNOSIS: Same OPERATION: Cephalo-medullary nailing of right intertrochanteric hip fracture SURGEON: PAM ALVES ANESTHESIA: Spinal TISSUE REMOVED OR ALTERED: None COMPLICATIONS: None ESTIMATED BLOOD LOSS: Less than 50 mL INTRAOPERATIVE FINDINGS: as above PROCEDURE: Patient was seen and evaluated in the preoperative holding area. The right lower extremity was initialized and marked. Patient received 2 g Ancef IV for bacterial prophylaxis. Patient was taken back to the operative room where transferred operative table. Patient was placed under spinal anesthesia. Once adequate anesthetized he was carefully placed onto the hip positioner the nonoperative lower extremity and bilateral upper extremities were carefully padded and the peroneal nerve was padded and on the nonoperative extremity. The operative extremity was placed in a traction along with adduction and internal rotation. A surgical team debriefing was performed ensuring all instrumentation was available, the surgical procedure was discussed with possible concerns reviewed. A timeout was done identifying correct patient, procedure and extremity everyone in attendance agree with this and verbalized no concerns. Reduction maneuver with the use of the hip traction table were done and C-arm fluoroscopy was used to confirm optimal reduction of the intertrochanteric fracture. Once this was confirmed the lower extremity was prepped with chlor prep and draped in a sterile fashion. At this point a small skin incision was made proximal to the greater trochanter. The guidewire was placed onto the tip of the trochanter advanced down to the level of the lesser trochanter. AP and lateral fluoroscopy was used to confirm appropriate placement of the guidewire. The skin incision was then extended and the underlying fascia opened up carefully to the tip of the greater trochanter. The entry reamer was then used and advanced to the level of the lesser trochanter. At this point Aline short gamma nail was opened up and placed onto the aiming arm and advanced down the shaft of the femur. AP and lateral fluoroscopy was then used to confirm appropriate placement of the nail. Then turned my attention to the compression screw fixation in the femoral head. The trochars were advanced to the skin, a skin incision was made, careful dissection down to the fascia to the lateral femoral cortex was then partaken. The guidewire was then used and placed in the center center position with the tip apex distance less than 25 mm. Once this position was obtained the size of the compression screw was measured. AP and lateral fluoroscopy used to confirm appropriate placement of our guide wire. The step reamer was used to drill up through the femoral neck and head. I then carefully advanced the compression screw into position. AP and lateral fluoroscopy was done to confirm appropriate placement of the compression screw this was then locked into position proximally. The compression screw was then disengaged from its mounting device and the guidewire was removed. Lastly proceeded with locking of the nail distally. Using the aiming arm the trochars were advanced to the skin, a skin incision was made. Careful dissection done with a hemostat to the lateral cortex of the femur. I then drilled the near and far cortices. Measured the appropriate sized distal locking screw and secured it into position. At this point AP/lateral and oblique views of the proximal and distal aspect of the nail were taken confirming appropriate placement of the compression screw, distal locking screw and intramedullary nail. Once this was confirmed I proceeded with copious irrigation of the proximal and distal wounds. The deep tissues were closed with 0 Vicryl suture, subcutaneous tissues were closed with 3-0 Monocryl suture. The skin was closed a running 3-0 subcuticular Monocryl suture and reinforced with Dermabond & Steri-Strips. A dressing was placed. Sponge counts, instrument counts and needle counts were correct. Patient was then transferred from the operating room table to the operating room stretcher. The was no intraoperative complications patient tolerated procedure well was stable to PACU. Implants used: [place] 11 x 180 mm 125 Short Gamma Nail with a 110 mm compression screw Postoperative plan: Patient will begin physical therapy on postop day #1 WBAT
[2018-04-04] MEDS ORDERED: RINGERS SOLUTION,LACTATED 1,000 ML IV PRN (18:32)
[2018-04-04] MEDS ORDERED: MAG HYDROX/AL HYDROX/SIMETH SUSP 30 ML UDCUP PO PRN (18:32)
[2018-04-04] MEDS ORDERED: ALBUTEROL SULFATE 0.083% NEB 2.5 MG/3 ML AMPUL NEB PRN (18:35)
--- NOTE | 2018-04-04 19:30 | RADIOLOGY REPORT (SQ) ---
EXAM DESCRIPTION: NO CHG FLUORO; HIP RIGHT AP/LATERAL COMPLETED DATE/TIME: 04/04/2018 6:56 pm REASON FOR STUDY: RIGHT HIP INTRAMEDULLARY NAILING W/ FLUORO; RIGHT HIP INTRAMEDULLARY NAIL COMPARISON: None. FLUOROSCOPY TIME: 0.8 minutes 4 images saved to PACS. TECHNIQUE: Intra-operative images acquired during surgical procedure to evaluate progress. NUMBER OF IMAGES: 4 LIMITATIONS: None. FINDINGS: Anatomic reduction of the intertrochanteric fracture with IM pearl and traversing PN. IMPRESSION: IMAGE(S) OBTAINED DURING PROCEDURE. COMMENT: Quality ID 145: Final reports for procedures using fluoroscopy that document radiation exp osure indices, or exposure time and number of fluorographic images (if radiation exposure indices are not available) Please consult full operative report of the attending physician for description of the procedure. TECHNICAL DOCUMENTATION: JOB ID: [id number] [employer]- All Rights Reserved Reading location - IP/workstation name: [email or web address]
--- NOTE | 2018-04-04 19:30 | RADIOLOGY REPORT (SQ) ---
EXAM DESCRIPTION: NO CHG FLUORO; HIP RIGHT AP/LATERAL COMPLETED DATE/TIME: 04/04/2018 6:56 pm REASON FOR STUDY: RIGHT HIP INTRAMEDULLARY NAILING W/ FLUORO; RIGHT HIP INTRAMEDULLARY NAIL COMPARISON: None. FLUOROSCOPY TIME: 0.8 minutes 4 images saved to PACS. TECHNIQUE: Intra-operative images acquired during surgical procedure to evaluate progress. NUMBER OF IMAGES: 4 LIMITATIONS: None. FINDINGS: Anatomic reduction of the intertrochanteric fracture with IM pearl and traversing PN. IMPRESSION: IMAGE(S) OBTAINED DURING PROCEDURE. COMMENT: Quality ID 145: Final reports for procedures using fluoroscopy that document radiation exp osure indices, or exposure time and number of fluorographic images (if radiation exposure indices are not available) Please consult full operative report of the attending physician for description of the procedure. TECHNICAL DOCUMENTATION: JOB ID: [id number] [employer]- All Rights Reserved Reading location - IP/workstation name: [email or web address]
[2018-04-04] MEDS: ALBUTEROL SULFATE 0.083% NEB 2.5 MG/3 ML AMPUL NEB SCH (20:08)
[2018-04-04] MEDS: SIMVASTATIN 10 MG TABLET PO SCH (21:33)
[2018-04-04] MEDS: DONEPEZIL HCL 5 MG TABLET PO SCH (21:33)
[2018-04-04] MEDS: CEFAZOLIN 2 GM/D5W RTU 2 GM/50 ML RTUPB IV SCH (23:17)
[2018-04-05] MEDS: IPRATROPIUM/ALBUTEROL 0.5-2.5 MG/3 ML AMPUL NEB SCH ×2 (02:41→08:24)
[2018-04-05 05:10] LABS: HEMATOCRIT 41.5 % (37.9-51.0); HEMOGLOBIN 14.1 g/dL (13.5-17.0); MEAN CORPUSCULAR HEMOGLOBIN 28.9 pg (27.0-33.4); MEAN CORPUSCULAR HGB CONC 33.9 g/dL (32.0-36.0); MEAN CORPUSCULAR VOLUME 85 fl (80-97); PLATELET COUNT 129 10^3/uL (150-450); RED BLOOD COUNT 4.86 10^6/uL (4.35-5.55); RED CELL DISTRIBUTION WIDTH 14.4 % (11.5-14.0); WHITE BLOOD COUNT 14.3 10^3/uL (4.0-10.5)
[2018-04-05] MEDS: CEFAZOLIN 2 GM/D5W RTU 2 GM/50 ML RTUPB IV SCH ×3 (05:23→17:52)
[2018-04-05] MEDS: LANSOPRAZOLE 15 MG TAB.RAP.DR PO SCH (05:23)
[2018-04-05 05:29] LABS: ANION GAP 7 (5-19); BLOOD UREA NITROGEN 19 mg/dL (7-20); CALCIUM 9.1 mg/dL (8.4-10.2); CARBON DIOXIDE 30 mmol/L (22-30); CHLORIDE 105 mmol/L (98-107); GLUCOSE 138 mg/dL (75-110); POTASSIUM 4.4 mmol/L (3.6-5.0); SODIUM 141.8 mmol/L (137-145)
[2018-04-05] MEDS: ALBUTEROL SULFATE 0.083% NEB 2.5 MG/3 ML AMPUL NEB SCH ×2 (08:24→12:20)
[2018-04-05] MEDS: ENOXAPARIN SODIUM INJ 40 MG/0.4 ML DISP.SYRIN SUBCUT SCH (09:09)
[2018-04-05] MEDS: PRENATAL VITAMIN W DHA CAPSULE PO SCH (09:19)
[2018-04-05] MEDS: FUROSEMIDE 40 MG TABLET PO SCH (09:19)
[2018-04-05] MEDS: ASPIRIN 81 MG TABLET, CHEWABLE PO SCH (09:19)
[2018-04-05] MEDS: DOCUSATE SODIUM 100 MG CAPSULE PO SCH ×2 (09:19→17:52)
[2018-04-05] MEDS: SENNOSIDES/DOCUSATE 8.6-50 MG 1 EACH TABLET PO SCH ×2 (09:19→17:52)
[2018-04-05] MEDS: DILTIAZEM HCL 180 MG CAPSULE.CR PO SCH (09:20)
[2018-04-05] MEDS: POTASSIUM CHLORIDE 10 MEQ CAPSULE.ER PO SCH (09:20)
[2018-04-05] MEDS: LORATADINE 10 MG TABLET PO SCH (09:20)
--- NOTE | 2018-04-05 11:37 | PDOC PROGRESS REPORT ---
Subjective Progress Note for:: 04/05/18 Subjective:: The patient is resting in bed. He appears comfortable. He does note that his right leg is still painful. His breathing is not labored. Reason For Visit: STATUS POST NAILING OF RIGHT HIP FRACTURE Physical Exam Vital Signs: Temp Pulse Resp BP Pulse Ox 98.9 F 90 20 160/58 H 96 04/05/18 08:12 04/05/18 08:12 04/05/18 08:12 04/05/18 08:12 04/05/18 08:12 Intake & Output 04/04/18 04/05/18 04/06/18 06:59 06:59 06:59 Intake Total 200 1850 Output Total 258 Balance 200 1592 Weight 91.2 kg 90.4 kg General appearance: PRESENT: no acute distress, cooperative, well-developed Head exam: PRESENT: atraumatic, normocephalic Mouth exam: PRESENT: moist, tongue midline Teeth exam: PRESENT: edentulous Respiratory exam: PRESENT: rales - Faint rales right base, symmetrical, unlabored. ABSENT: wheezes Cardiovascular exam: PRESENT: RRR, +S1, +S2 GI/Abdominal exam: PRESENT: distended, normal bowel sounds, soft. ABSENT: guarding, tenderness Extremities exam: ABSENT: pedal edema - Dean stockings in place Neurological exam: PRESENT: alert, awake, CN II-XII grossly intact. ABSENT: oriented to situation Psychiatric exam: PRESENT: appropriate affect, normal mood. ABSENT: agitated, anxious Focused psych exam: ABSENT: restlessness Skin exam: PRESENT: other - Bruising/petechia left arm Results Laboratory Results: 04/05/18 05:01 04/05/18 05:01 04/05/18 04/05/18 05:01 05:01 WBC 14.3 H RBC 4.86 Hgb 14.1 Hct 41.5 MCV 85 MCH 28.9 MCHC 33.9 RDW 14.4 H Plt Count 129 L Sodium 141.8 Potassium 4.4 Chloride 105 Carbon Dioxide 30 Anion Gap 7 BUN 19 Creatinine 0.67 Est GFR ( Amer) > 60 Est GFR (Non-Af Amer) > 60 Glucose 138 H Calcium 9.1 Impressions: Femur X-Ray 04/03/18 07:24 IMPRESSION: Acute right proximal femur intertrochanteric fracture with mild medial displacement of the lesser trochanter fragment. Knee X-Ray 04/03/18 07:24 IMPRESSION: No acute fracture right knee. Tricompartment osteoarthritis Fluoroscopy 04/04/18 00:00 IMPRESSION: IMAGE(S) OBTAINED DURING PROCEDURE. Hip/Pelvis X-Ray 04/04/18 00:00 IMPRESSION: IMAGE(S) OBTAINED DURING PROCEDURE. Chest X-Ray 04/04/18 06:00 IMPRESSION: Obstructive lung disease Minimal airspace disease in the lingular apex Assessment & Plan - Diagnosis (1) Closed comminuted intertrochanteric fracture of proximal end of right femur Qualifiers: Encounter type: initial encounter Qualified Code(s): S72.141A - Displaced intertrochanteric fracture of right femur, initial encounter for closed fracture Is this a current diagnosis for this admission?: Yes Plan: The patient underwent placement of a nail in the right femur yesterday. Orthopedic surgery continues to follow the patient. (2) Hypertension Qualifiers: Hypertension type: essential hypertension Qualified Code(s): I10 - Essential (primary) hypertension Is this a current diagnosis for this admission?: Yes Plan: The patient's systolic pressure has been slightly higher than desired. Some of this might be attributable to his pain from the fracture and surgery. His pulse is well controlled. If better blood pressure control is desired I may add low-dose KARINA inhibitor. He is already on furosemide 40 mg daily with potassium supplementation as well as diltiazem 180 mg daily. Of note, the patient also has fluid running. He has a positive fluid balance of almost 2 L over the last 2 days. I will discontinue his IV fluid at this time. (3) COPD (chronic obstructive pulmonary disease) Qualifiers: COPD type: emphysema Is this a current diagnosis for this admission?: Yes Plan: He is currently on scheduled nebulizer therapy. I will resume his Advair and Spiriva today. Tomorrow we will change his nebulizer therapy to as needed. (4) Hyperlipidemia Qualifiers: Hyperlipidemia type: mixed hyperlipidemia Qualified Code(s): E78.2 - Mixed hyperlipidemia Is this a current diagnosis for this admission?: Yes Plan: Continue simvastatin 10 mg daily. (5) Small vessel disease Is this a current diagnosis for this admission?: Yes Plan: Continue aspirin daily. Try to maintain good blood pressure control and continue statin therapy. (6) Dementia Qualifiers: Dementia type: vascular dementia Is this a current diagnosis for this admission?: Yes Plan: Continue Aricept 5 mg daily.
[2018-04-05] MEDS: ACETAMINOPHEN 325 MG TABLET PO PRN (15:16)
[2018-04-05] MEDS ORDERED: IPRATROPIUM/ALBUTEROL 0.5-2.5 MG/3 ML AMPUL NEB SCH (16:00)
[2018-04-05] MEDS: DONEPEZIL HCL 5 MG TABLET PO SCH (21:06)
[2018-04-05] MEDS: SIMVASTATIN 10 MG TABLET PO SCH (21:06)
[2018-04-05] MEDS: FLUTICASONE/SALMETEROL DISKUS 250-50 MCG/DOSE IH SCH (21:07)
[2018-04-06] MEDS: CEFAZOLIN 2 GM/D5W RTU 2 GM/50 ML RTUPB IV SCH ×5 (00:37→23:37)
[2018-04-06] MEDS: ACETAMINOPHEN 325 MG TABLET PO PRN (02:21)
[2018-04-06] MEDS: LANSOPRAZOLE 15 MG TAB.RAP.DR PO SCH (05:08)
[2018-04-06 06:12] LABS: HEMATOCRIT 34.9 % (37.9-51.0); MEAN CORPUSCULAR HGB CONC 34.3 g/dL (32.0-36.0); MEAN CORPUSCULAR VOLUME 84 fl (80-97); PLATELET COUNT 147 10^3/uL (150-450); RED BLOOD COUNT 4.14 10^6/uL (4.35-5.55); WHITE BLOOD COUNT 12.6 10^3/uL (4.0-10.5)
[2018-04-06] MEDS: TIOTROPIUM BROMIDE DPI 5 CAP/KIT (18 MCG/CAP) IH SCH (09:46)
[2018-04-06] MEDS: DILTIAZEM HCL 180 MG CAPSULE.CR PO SCH (09:47)
[2018-04-06] MEDS: FLUTICASONE/SALMETEROL DISKUS 250-50 MCG/DOSE IH SCH ×2 (09:48→21:48)
[2018-04-06] MEDS: DOCUSATE SODIUM 100 MG CAPSULE PO SCH ×2 (09:52→18:50)
[2018-04-06] MEDS: POTASSIUM CHLORIDE 10 MEQ CAPSULE.ER PO SCH (09:52)
[2018-04-06] MEDS: LORATADINE 10 MG TABLET PO SCH (09:53)
[2018-04-06] MEDS: SENNOSIDES/DOCUSATE 8.6-50 MG 1 EACH TABLET PO SCH ×2 (09:53→18:50)
[2018-04-06] MEDS: FUROSEMIDE 40 MG TABLET PO SCH (09:53)
[2018-04-06] MEDS: ASPIRIN 81 MG TABLET, CHEWABLE PO SCH (09:53)
[2018-04-06] MEDS: ENOXAPARIN SODIUM INJ 40 MG/0.4 ML DISP.SYRIN SUBCUT SCH (09:55)
[2018-04-06] MEDS: PRENATAL VITAMIN W DHA CAPSULE PO SCH (10:01)
--- NOTE | 2018-04-06 10:54 | EKG REPORT ---
SEVERITY:- OTHERWISE NORMAL ECG - SINUS RHYTHM BORDERLINE RIGHT AXIS DEVIATION : Confirmed by: Franky Mendoza 06-Apr-2018 10:53:21
--- NOTE | 2018-04-06 11:04 | PDOC PROGRESS REPORT ---
Subjective Progress Note for:: 04/06/18 Subjective:: No overnight events. Patient denies pain for me. No fevers, chills, CP, SOB, N/ V. Attempted to assess when patient's last BM was but he was not sure. Reason For Visit: STATUS POST NAILING OF RIGHT HIP FRACTURE Physical Exam Vital Signs: Temp Pulse Resp BP Pulse Ox 99.7 F 88 16 156/55 H 95 04/05/18 23:04 04/06/18 08:22 04/06/18 08:22 04/05/18 23:04 04/06/18 08:22 Intake & Output 04/05/18 04/06/18 04/07/18 06:59 06:59 06:59 Intake Total 1850 2007 Output Total 258 375 Balance 1592 1633 Weight 90.4 kg 98.3 kg General appearance: PRESENT: no acute distress, cooperative Head exam: PRESENT: atraumatic Mouth exam: PRESENT: moist Teeth exam: PRESENT: edentulous Respiratory exam: PRESENT: unlabored. ABSENT: wheezes Cardiovascular exam: PRESENT: RRR, +S1, +S2. ABSENT: tachycardia GI/Abdominal exam: PRESENT: soft. ABSENT: tenderness Extremities exam: PRESENT: pedal edema, other - Dean stockings and boots in place Neurological exam: PRESENT: alert, awake, CN II-XII grossly intact Psychiatric exam: PRESENT: normal mood Skin exam: PRESENT: dry, intact Results Laboratory Results: 04/06/18 05:20 04/05/18 05:01 04/06/18 05:20 WBC 12.6 H RBC 4.14 L Hgb 12.0 L D Hct 34.9 L MCV 84 MCH 29.0 MCHC 34.3 RDW 14.0 Plt Count 147 L Impressions: Femur X-Ray 04/03/18 07:24 IMPRESSION: Acute right proximal femur intertrochanteric fracture with mild medial displacement of the lesser trochanter fragment. Knee X-Ray 04/03/18 07:24 IMPRESSION: No acute fracture right knee. Tricompartment osteoarthritis Fluoroscopy 04/04/18 00:00 IMPRESSION: IMAGE(S) OBTAINED DURING PROCEDURE. Hip/Pelvis X-Ray 04/04/18 00:00 IMPRESSION: IMAGE(S) OBTAINED DURING PROCEDURE. Chest X-Ray 04/04/18 06:00 IMPRESSION: Obstructive lung disease Minimal airspace disease in the lingular apex Assessment & Plan - Diagnosis (1) Closed comminuted intertrochanteric fracture of proximal end of right femur Qualifiers: Encounter type: initial encounter Qualified Code(s): S72.141A - Displaced intertrochanteric fracture of right femur, initial encounter for closed fracture Is this a current diagnosis for this admission?: Yes Plan: POD #2, will need to discuss with Ortho, re: discharge planning - Appears to be doing well. No active pain (2) COPD (chronic obstructive pulmonary disease) Qualifiers: COPD type: emphysema Is this a current diagnosis for this admission?: Yes Plan: Continue Advair and Spiriva, PRN nebs ordered (3) Dementia Qualifiers: Dementia type: vascular dementia Is this a current diagnosis for this admission?: Yes Plan: Unchanged, patient is an unreliable historian (4) Hyperlipidemia Qualifiers: Hyperlipidemia type: mixed hyperlipidemia Qualified Code(s): E78.2 - Mixed hyperlipidemia Is this a current diagnosis for this admission?: Yes (5) Hypertension Qualifiers: Hypertension type: essential hypertension Qualified Code(s): I10 - Essential (primary) hypertension Is this a current diagnosis for this admission?: Yes Plan: Stable, CTM - Continue Dilitiazem and Lasix - If elevate, consider KARINA-i/ARB (6) Constipation Qualifiers: Constipation type: drug induced constipation Qualified Code(s): K59.03 - Drug induced constipation Is this a current diagnosis for this admission?: Yes Plan: Unclear last BM. If no Bm by 04/07, would increase bowel regimen. 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
--- NOTE | 2018-04-06 13:01 | Progress Note ---
Provider Note Provider Note: CARDIOLOGY PROGRESS NOTES by Dr. Addis Bhatti on 04/06/2018. SUBJECTIVE: The patient although that he has dementia appears to be comfortable. He denies any chest pain or discomfort. There is no cough or sputum production. The patient does not appear to be short of breath and also the patient denies shortness of breath. There is no TIA CVA symptoms. Patient denies palpitations. There is no leg edema. The patient's postop pain is very well controlled, and his blood pressure is much improved. PHYSICAL EXAMINATION: The patient is well-built and well-nourished. Seems to be in no acute distress. He is well-groomed. Selected Entries 04/06/18 04/06/18 08:22 12:25 Temperature 99.4 F Pulse Rate 88 80 Respiratory 16 Rate Respiratory Normal Depth Respiratory Non-Labored Effort Respiratory Normal Pattern Blood Pressure 144/50 H Blood Pressure 81 Mean O2 Sat by Pulse 95 96 Oximetry Oxygen Delivery Nasal Cannula Method ( includes room air) Oxygen Flow 2 Rate HEAD: Head is atraumatic normocephalic. EYES: Pupils are equal, round, regular , reactive to light and accommodation. Extraocular movements are normal. There is no conjunctival pallor. There is no scleral icterus. ENT: Is negative. NECK: Is supple there is no JVD carotids are equal. There is no carotid bruits. There is no lymphadenopathy. There is no goiter. There is no accessory muscle respiration in use. Trachea central. Lungs show diminished air entry prolonged expiration without any rhonchi rales or wheezing. On percussion there is hyperresonance throughout. HEART: S1-S2 is heard there is no S3 gallop there is no S4 gallop the systolic murmur left sternal border and the apex without radiation. There is no rub. ABDOMEN: Is soft nontender there is no hepatosplenomegaly. Bowel sounds are well heard. EXTREMITIES: Femorals are diminished. There is no femoral bruits. Leg pulses are diminished. There is no pedal edema the dressing in the right operative site and the hip is clean and dry. There is no DVT or cellulitis. There is no calf tenderness. There is no sinus or clubbing. 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 There is no focal deficits. Psychiatric: In- depth psychiatric examination could not be done due to the patient's dementia. But the patient does not appear to be agitated. He does not appear to be anxious. 04/05/18 04/06/18 05:01 05:20 WBC 12.6 H RBC 4.14 L Hgb 12.0 L D Hct 34.9 L MCV 84 Plt Count 147 L Sodium 141.8 Potassium 4.4 Chloride 105 Carbon Dioxide 30 BUN 19 Creatinine 0.67 Est GFR (Non-Af Amer) > 60 Glucose 138 H Calcium 9.1 IMPRESSION RECOMMENDATION: 1. Status post surgery for right hip right femoral fracture: Patient appears to be stable. He has no anginal symptoms. And does not appear to be in heart failure, and no symptoms of acute exacerbation of COPD. 2. COPD: Appears to be stable without any signs or symptoms of acute exacerbation. Continue anti-COPD treatment. 3. Hypertension: Although the patient's blood pressures now optimally controlled . Continue his antihypertensives. 4. Dementia: Appears to be stable. 5. Hyperlipidemia continue current medication. His medications have been reviewed. The patient's status is very stable. Medical decision making is of mild complexity. Discussed with the hospitalist taking care of the patient. Will sign off. Thanking you for allowing me to participate in the care of this patient.
--- NOTE | 2018-04-06 13:01 | Progress Note ---
Provider Note Provider Note: CARDIOLOGY PROGRESS NOTES by Dr. Addis Bhatti on 04/05/2018. SUBJECTIVE: The patient although that he has dementia appears to be comfortable. He denies any chest pain or discomfort. There is no cough or sputum production. The patient does not appear to be short of breath and also the patient denies shortness of breath. There is no TIA CVA symptoms. Patient denies palpitations. There is no leg edema. PHYSICAL EXAMINATION: The patient is well-built and well-nourished. Seems to be in no acute distress. He is well-groomed. Selected Entries 04/05/18 11:53 Temperature 99.4 F Temperature Oral Source Respiratory 20 Rate Blood Pressure 158/51 H Blood Pressure 86 Mean BP Location Right Arm BP Position Supine O2 Sat by Pulse 92 Oximetry Oxygen Flow 0.50 Rate Oxygen Delivery Nasal Cannula Method HEAD: Head is atraumatic normocephalic. EYES: Pupils are equal, round, regular , reactive to light and accommodation. Extraocular movements are normal. There is no conjunctival pallor. There is no scleral icterus. ENT: Is negative. NECK: Is supple there is no JVD carotids are equal. There is no carotid bruits. There is no lymphadenopathy. There is no goiter. There is no accessory muscle respiration in use. Trachea central. Lungs show diminished air entry prolonged expiration without any rhonchi rales or wheezing. On percussion there is hyperresonance throughout. HEART: S1-S2 is heard there is no S3 gallop there is no S4 gallop the systolic murmur left sternal border and the apex without radiation. There is no rub. ABDOMEN: Is soft nontender there is no hepatosplenomegaly. Bowel sounds are well heard. EXTREMITIES: Femorals are diminished. There is no femoral bruits. Leg pulses are diminished. There is no pedal edema the dressing in the right operative site and the hip is clean and dry. There is no DVT or cellulitis. There is no calf tenderness. There is no sinus or clubbing. 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 There is no focal deficits. Psychiatric: In-depth psychiatric examination could not be done due to the patient's dementia. But the patient does not appear to be agitated. He does not appear to be anxious. 04/04/18 04/05/1804/05/18 06:26 05:01 05:01 WBC 14.3 H RBC 4.86 Hgb 14.1 Hct 41.5 MCV 85 MCH 28.9 MCHC 33.9 RDW 14.4 H Plt Count 129 L Sodium 141.8 Potassium 4.4 Chloride 105 Carbon Dioxide 30 Anion Gap 7 BUN 19 Creatinine 0.67 Est GFR (Non-Af Amer) > 60 Glucose 138 H Calcium 9.1 TSH 0.72 IMPRESSION RECOMMENDATION: 1. Status post surgery for right hip right femoral fracture: Patient appears to be stable. He has no anginal symptoms. And does not appear to be in heart failure, and no symptoms of acute exacerbation of COPD. 2. COPD: Appears to be stable without any signs or symptoms of acute exacerbation. Continue anti-COPD treatment. 3. Hypertension: Although the patient's blood pressures not optimally controlled but for a patient who has postop pain his blood pressure is acceptable. Continue his antihypertensives. 4. Dementia: Appears to be stable. 5. Hyperlipidemia continue current medication. His medications have been reviewed. Plan of care discussed with the hospitalist covering for Dr. Barrett. Medical decision making is of moderate complexity. 40 minutes spent on this patient with more than 50% of time spent of direct patient care. The patient continues to be DNR. Surrogate healthcare decision maker is unchanged. We will follow with you. Thanking you
--- NOTE | 2018-04-06 13:38 | PDOC PROGRESS REPORT ---
Subjective Progress Note for:: 04/06/18 Subjective:: Patient doing very well. Pain is adequately controlled. No issues overnight. Reason For Visit: STATUS POST NAILING OF RIGHT HIP FRACTURE Physical Exam Vital Signs: Temp Pulse Resp BP Pulse Ox 37.4 C 80 16 144/50 H 96 04/06/18 12:25 04/06/18 12:25 04/06/18 08:22 04/06/18 12:25 04/06/18 12:25 Intake & Output 04/05/18 04/06/18 04/07/18 06:59 06:59 06:59 Intake Total 1850 2007 Output Total 258 375 Balance 1592 1633 Weight 90.4 kg 98.3 kg Adult Front & Back Image: 1 - Dressings are dry clean and intact. Neurovascular intact distally with negative Homans sign and soft Results Laboratory Results: 04/06/18 05:20 04/05/18 05:01 04/06/18 05:20 WBC 12.6 H RBC 4.14 L Hgb 12.0 L D Hct 34.9 L MCV 84 MCH 29.0 MCHC 34.3 RDW 14.0 Plt Count 147 L Impressions: Femur X-Ray 04/03/18 07:24 IMPRESSION: Acute right proximal femur intertrochanteric fracture with mild medial displacement of the lesser trochanter fragment. Knee X-Ray 04/03/18 07:24 IMPRESSION: No acute fracture right knee. Tricompartment osteoarthritis Fluoroscopy 04/04/18 00:00 IMPRESSION: IMAGE(S) OBTAINED DURING PROCEDURE. Hip/Pelvis X-Ray 04/04/18 00:00 IMPRESSION: IMAGE(S) OBTAINED DURING PROCEDURE. Chest X-Ray 04/04/18 06:00 IMPRESSION: Obstructive lung disease Minimal airspace disease in the lingular apex Assessment & Plan - Diagnosis (1) Closed comminuted intertrochanteric fracture of proximal end of right femur Qualifiers: Encounter type: initial encounter Qualified Code(s): S72.141A - Displaced intertrochanteric fracture of right femur, initial encounter for closed fracture Is this a current diagnosis for this admission?: Yes - Plan Summary Plan Summary: Patient is 82-year-old male POD #2 from nailing of right hip fracture. Weight-bear as tolerated on the right lower extremity. Continue physical therapy Continue pain control Continue DVT prophylaxis Awaiting assisted facility placement
[2018-04-06] MEDS: SIMVASTATIN 10 MG TABLET PO SCH (21:48)
[2018-04-06] MEDS: DONEPEZIL HCL 5 MG TABLET PO SCH (21:49)
[2018-04-07] MEDS: CEFAZOLIN 2 GM/D5W RTU 2 GM/50 ML RTUPB IV SCH ×4 (05:11→23:29)
[2018-04-07] MEDS: LANSOPRAZOLE 15 MG TAB.RAP.DR PO SCH (05:11)
[2018-04-07 06:15] LABS: HEMATOCRIT 31.6 % (37.9-51.0); HEMOGLOBIN 11.1 g/dL (13.5-17.0); MEAN CORPUSCULAR HEMOGLOBIN 29.6 pg (27.0-33.4); MEAN CORPUSCULAR VOLUME 84 fl (80-97); PLATELET COUNT 148 10^3/uL (150-450); RED BLOOD COUNT 3.74 10^6/uL (4.35-5.55); RED CELL DISTRIBUTION WIDTH 14.7 % (11.5-14.0); WHITE BLOOD COUNT 9.4 10^3/uL (4.0-10.5)
[2018-04-07] MEDS ORDERED: MAGNESIUM CITRATE 296 ML BOTTLE PO ONE (08:38)
[2018-04-07] MEDS ORDERED: NA PHOS,M-B/NA PHOS,DI-BA (ADULT) 133 ML ENEMA PR ONE ×2 (08:39→17:00)
--- NOTE | 2018-04-07 08:44 | PDOC PROGRESS REPORT ---
Subjective Progress Note for:: 04/07/18 Subjective:: The patient is doing much better. He denies any pain. He is status post surgical fixation of the right hip. He denies any shortness of breath or chest pain. Reason For Visit: STATUS POST NAILING OF RIGHT HIP FRACTURE Physical Exam Vital Signs: Temp Pulse Resp BP Pulse Ox 99.1 F 98 20 130/52 H 93 04/07/18 07:58 04/07/18 07:58 04/07/18 07:58 04/07/18 07:58 04/07/18 07:58 Intake & Output 04/06/18 04/07/18 04/08/18 06:59 06:59 06:59 Intake Total 2007 250 Output Total 375 200 Balance 1633 50 Weight 98.3 kg 98.3 kg General appearance: PRESENT: no acute distress Head exam: PRESENT: atraumatic Eye exam: PRESENT: conjunctiva pink Neck exam: PRESENT: carotid bruit. ABSENT: JVD Respiratory exam: PRESENT: rhonchi. ABSENT: wheezes Cardiovascular exam: PRESENT: RRR, +S1, +S2 GI/Abdominal exam: PRESENT: normal bowel sounds, soft Extremities exam: PRESENT: tenderness Musculoskeletal exam: PRESENT: tenderness Neurological exam: PRESENT: alert, awake Results Laboratory Results: 04/07/18 05:35 04/05/18 05:01 04/07/18 05:35 WBC 9.4 RBC 3.74 L Hgb 11.1 L Hct 31.6 L MCV 84 MCH 29.6 MCHC 35.0 RDW 14.7 H Plt Count 148 L Impressions: Femur X-Ray 04/03/18 07:24 IMPRESSION: Acute right proximal femur intertrochanteric fracture with mild medial displacement of the lesser trochanter fragment. Knee X-Ray 04/03/18 07:24 IMPRESSION: No acute fracture right knee. Tricompartment osteoarthritis Fluoroscopy 04/04/18 00:00 IMPRESSION: IMAGE(S) OBTAINED DURING PROCEDURE. Hip/Pelvis X-Ray 04/04/18 00:00 IMPRESSION: IMAGE(S) OBTAINED DURING PROCEDURE. Chest X-Ray 04/04/18 06:00 IMPRESSION: Obstructive lung disease Minimal airspace disease in the lingular apex Assessment & Plan - Diagnosis (1) Closed comminuted intertrochanteric fracture of proximal end of right femur Qualifiers: Encounter type: initial encounter Qualified Code(s): S72.141A - Displaced intertrochanteric fracture of right femur, initial encounter for closed fracture Is this a current diagnosis for this admission?: Yes Plan: Status post surgical fixation of the right hip. We will continue with physical therapy and rehab (2) COPD (chronic obstructive pulmonary disease) Qualifiers: COPD type: emphysema Is this a current diagnosis for this admission?: Yes Plan: Continue current medications. (3) Hypertension Qualifiers: Hypertension type: essential hypertension Qualified Code(s): I10 - Essential (primary) hypertension Is this a current diagnosis for this admission?: Yes Plan: Continue current medications (4) Small vessel disease Is this a current diagnosis for this admission?: Yes Plan: Continue current medications (5) Hyperlipidemia Qualifiers: Hyperlipidemia type: mixed hyperlipidemia Qualified Code(s): E78.2 - Mixed hyperlipidemia Is this a current diagnosis for this admission?: Yes (6) Dementia Qualifiers: Dementia type: vascular dementia Is this a current diagnosis for this admission?: Yes Plan: Continue current treatment
[2018-04-07] MEDS: OXYCODONE HCL IR 5 MG TABLET PO PRN (08:48)
[2018-04-07] MEDS: LORATADINE 10 MG TABLET PO SCH (09:22)
[2018-04-07] MEDS: POTASSIUM CHLORIDE 10 MEQ CAPSULE.ER PO SCH (09:22)
[2018-04-07] MEDS: DOCUSATE SODIUM 100 MG CAPSULE PO SCH ×2 (09:22→17:25)
[2018-04-07] MEDS: FUROSEMIDE 40 MG TABLET PO SCH (09:22)
[2018-04-07] MEDS: ASPIRIN 81 MG TABLET, CHEWABLE PO SCH (09:22)
[2018-04-07] MEDS: SENNOSIDES/DOCUSATE 8.6-50 MG 1 EACH TABLET PO SCH ×2 (09:22→17:25)
[2018-04-07] MEDS: DILTIAZEM HCL 180 MG CAPSULE.CR PO SCH (09:22)
[2018-04-07] MEDS: FLUTICASONE/SALMETEROL DISKUS 250-50 MCG/DOSE IH SCH ×2 (09:23→21:54)
[2018-04-07] MEDS: TIOTROPIUM BROMIDE DPI 5 CAP/KIT (18 MCG/CAP) IH SCH (09:25)
[2018-04-07] MEDS: ENOXAPARIN SODIUM INJ 40 MG/0.4 ML DISP.SYRIN SUBCUT SCH (09:28)
[2018-04-07] MEDS: PRENATAL VITAMIN W DHA CAPSULE PO SCH (09:28)
--- NOTE | 2018-04-07 19:21 | PDOC PROGRESS REPORT ---
Subjective Progress Note for:: 04/07/18 Subjective:: Patient resting comfortably in bed. States pain is well controlled. No issues overnight Reason For Visit: STATUS POST NAILING OF RIGHT HIP FRACTURE Physical Exam Vital Signs: Temp Pulse Resp BP Pulse Ox 36.6 C 80 16 142/88 H 99 04/07/18 16:18 04/07/18 16:18 04/07/18 16:18 04/07/18 16:18 04/07/18 16:18 Intake & Output 04/06/18 04/07/18 04/08/18 06:59 06:59 06:59 Intake Total 2007 250 420 Output Total 200 300 Balance 1633 50 120 Weight 98.3 kg 98.3 kg Adult Front & Back Image: 1 - Minimal bloody drainage on the dressing but is still intact and no erythema. Swelling appropriate. Soft calf with negative Leigh Ann. Neurovascular intact distally. Results Laboratory Results: 04/07/18 05:35 04/05/18 05:01 04/07/18 05:35 WBC 9.4 RBC 3.74 L Hgb 11.1 L Hct 31.6 L MCV 84 MCH 29.6 MCHC 35.0 RDW 14.7 H Plt Count 148 L Impressions: Femur X-Ray 04/03/18 07:24 IMPRESSION: Acute right proximal femur intertrochanteric fracture with mild medial displacement of the lesser trochanter fragment. Knee X-Ray 04/03/18 07:24 IMPRESSION: No acute fracture right knee. Tricompartment osteoarthritis Fluoroscopy 04/04/18 00:00 IMPRESSION: IMAGE(S) OBTAINED DURING PROCEDURE. Hip/Pelvis X-Ray 04/04/18 00:00 IMPRESSION: IMAGE(S) OBTAINED DURING PROCEDURE. Chest X-Ray 04/04/18 06:00 IMPRESSION: Obstructive lung disease Minimal airspace disease in the lingular apex Status: Image reviewed by me Assessment & Plan - Diagnosis (1) Closed comminuted intertrochanteric fracture of proximal end of right femur Qualifiers: Encounter type: initial encounter Qualified Code(s): S72.141A - Displaced intertrochanteric fracture of right femur, initial encounter for closed fracture Is this a current diagnosis for this admission?: Yes - Plan Summary Plan Summary: Patient is 82-year-old male POD #3 from nailing of right intertrochanteric hip fracture. Change dressing at discharge. Continue physical therapy Continue pain control Continue DVT prophylaxis Awaiting assisted facility placement
[2018-04-07] MEDS: DONEPEZIL HCL 5 MG TABLET PO SCH (21:54)
[2018-04-07] MEDS: SIMVASTATIN 10 MG TABLET PO SCH (21:54)
[2018-04-08] MEDS: ACETAMINOPHEN 325 MG TABLET PO PRN (00:19)
[2018-04-08] MEDS: CEFAZOLIN 2 GM/D5W RTU 2 GM/50 ML RTUPB IV SCH (05:12)
[2018-04-08] MEDS: LANSOPRAZOLE 15 MG TAB.RAP.DR PO SCH (05:12)
[2018-04-08] MEDS ORDERED: RIVAROXABAN 10 MG TABLET PO ONE (07:35)
[2018-04-08] MEDS ORDERED: LANSOPRAZOLE 15 MG TAB.RAP.DR PO SCH (08:19)
--- NOTE | 2018-04-08 08:37 | PDOC TRANSFER SUMMARY ---
General - Admit/Disc Date/PCP Admission Date/Primary Care Provider: 04/03/18 13:48 KIET CASTAÑEDA MD Discharge Date: 04/08/18 - Discharge Diagnosis (1) Closed comminuted intertrochanteric fracture of proximal end of right femur Is this a current diagnosis for this admission?: Yes Summary: Status post surgical repair of the right hip. Continue recommendations by the orthopedic with physical therapy. (2) COPD (chronic obstructive pulmonary disease) Is this a current diagnosis for this admission?: Yes Summary: Continue nebulization treatments and inhalers (3) Hypertension Is this a current diagnosis for this admission?: Yes Summary: Continue current medications (4) Small vessel disease Is this a current diagnosis for this admission?: Yes Summary: Continue current medications (5) Hyperlipidemia Is this a current diagnosis for this admission?: Yes Summary: Continue current treatment (6) Dementia Is this a current diagnosis for this admission?: Yes Summary: Continue current treatment (7) DNR (do not resuscitate) Is this a current diagnosis for this admission?: Yes Summary: Continue DNR status - Additional Information Resuscitation Status: Do Not Resuscitate Discharge Diet: Cardiac Discharge Activity: Balance Activity w/Rest Prescriptions: Oxycodone HCl [Oxy-Ir 5 mg Tablet] 5 mg PO Q4HP PRN #60 tablet PRN Reason: Rivaroxaban [Xarelto 10 mg Tablet] 10 mg PO WSUPPER #35 tablet Home Medications: Acetaminophen [Tylenol 325 mg Tablet] 650 mg PO Q6HP PRN 04/03/18 Albuterol Sulfate [Ventolin 0.083% Neb 2.5 mg/3 mL Ampul] 2.5 mg NEB RTQ4HP PRN 04/03/18 Albuterol Sulfate [Ventolin 0.083% Neb 2.5 mg/3 mL Ampul] 2.5 mg NEB [id number] Aspirin [Aspirin 81 mg Chewable Tablet] 81 mg PO DAILY 04/03/18 Diltiazem HCl [Diltiazem 24Hr Cd] 180 mg PO DAILY 04/03/18 Donepezil HCl [Aricept] 10 mg PO QHS 04/03/18 Fexofenadine HCl [Linette] 180 mg PO DAILY 04/03/18 Fluticasone/Salmeterol [Advair 250-50 Diskus 14 Dose/Diskus] 1 puff IH BID 04/03 Furosemide [Lasix 40 mg Tablet] 40 mg PO DAILY 04/03/18 Magnesium Hydroxide [Milk of Magnesia 30 ml Udcup] 30 ml PO DAILYP PRN 04/03/18 Omeprazole 20 mg PO DAILY 04/03/18 Potassium Chloride [K-Tab ER] 20 meq PO DAILY 04/03/18 Simvastatin [Zocor 10 mg Tablet] 10 mg PO QHS 04/03/18 Tiotropium [place] [Spiriva Handihaler 5 Cap/Kit (18 Mcg/Cap)] 18 mcg IH DAILY 04/03/18 Docusate Sodium [Colace 100 mg Capsule] 100 mg PO BID capsule 04/08/18 Oxycodone HCl [Oxy-Ir 5 mg Tablet] 5 mg PO Q4HP PRN #60 tablet 04/08/18 Vit/Dha [ Multi + Dha Capsule] 1 cap PO DAILY capsule Rivaroxaban [Xarelto 10 mg Tablet] 10 mg PO WSUPPER #35 tablet 04/08/18 History of Present Illness Admission Date/PCP: 04/03/18 13:48 KIET CASTAÑEDA MD Hospital Course Hospital Course: The patient was admitted to the hospital with a right hip fracture. He had an echocardiogram done and was seen by pulmonology. The patient underwent surgical repair. He did quite well post surgery. The wound is healing well. The patient was started on DVT prophylaxis. Arrangements are being made for patient to go to the rehab Physical Exam Vital Signs: Temp Pulse Resp BP Pulse Ox 99.5 F 85 16 139/52 H 87 L 04/07/18 23:42 04/07/18 23:42 04/07/18 23:42 04/07/18 23:42 04/07/18 23:42 Intake & Output 04/07/18 04/08/18 04/09/18 06:59 06:59 06:59 Intake Total 250 1020 Output Total 200 600 Balance 50 420 Weight 98.3 kg 98.3 kg General appearance: PRESENT: no acute distress Head exam: PRESENT: atraumatic Eye exam: PRESENT: conjunctiva pink Neck exam: PRESENT: carotid bruit. ABSENT: JVD Respiratory exam: PRESENT: rhonchi Cardiovascular exam: PRESENT: RRR, +S1, +S2 GI/Abdominal exam: PRESENT: normal bowel sounds, soft Extremities exam: PRESENT: tenderness Musculoskeletal exam: PRESENT: tenderness Neurological exam: PRESENT: alert, awake Results Laboratory Results: 04/07/18 05:35 04/05/18 05:01 Impressions: Femur X-Ray 04/03/18 07:24 IMPRESSION: Acute right proximal femur intertrochanteric fracture with mild medial displacement of the lesser trochanter fragment. Knee X-Ray 04/03/18 07:24 IMPRESSION: No acute fracture right knee. Tricompartment osteoarthritis Fluoroscopy 04/04/18 00:00 IMPRESSION: IMAGE(S) OBTAINED DURING PROCEDURE. Hip/Pelvis X-Ray 04/04/18 00:00 IMPRESSION: IMAGE(S) OBTAINED DURING PROCEDURE. Chest X-Ray 04/04/18 06:00 IMPRESSION: Obstructive lung disease Minimal airspace disease in the lingular apex Qualifiers - * PATIENT BEING DISCHARGED WITH ANY OF THE FOLLOWING DIAGNOSIS: No
[2018-04-08] MEDS ORDERED: LANSOPRAZOLE 30 MG TAB.RAP.DR PO SCH (09:15)
[2018-04-08] MEDS: DOCUSATE SODIUM 100 MG CAPSULE PO SCH (10:07)
[2018-04-08] MEDS: SENNOSIDES/DOCUSATE 8.6-50 MG 1 EACH TABLET PO SCH (10:07)
[2018-04-08] MEDS: FLUTICASONE/SALMETEROL DISKUS 250-50 MCG/DOSE IH SCH (10:18)
[2018-04-08] MEDS: PRENATAL VITAMIN W DHA CAPSULE PO SCH (10:18)
[2018-04-08] MEDS: FUROSEMIDE 40 MG TABLET PO SCH (10:19)
[2018-04-08] MEDS: ASPIRIN 81 MG TABLET, CHEWABLE PO SCH (10:19)
[2018-04-08] MEDS: POTASSIUM CHLORIDE 10 MEQ CAPSULE.ER PO SCH (10:19)
[2018-04-08] MEDS: DILTIAZEM HCL 180 MG CAPSULE.CR PO SCH (10:19)
[2018-04-08] MEDS: OXYCODONE HCL IR 5 MG TABLET PO PRN (10:19)
[2018-04-08] MEDS: TIOTROPIUM BROMIDE DPI 5 CAP/KIT (18 MCG/CAP) IH SCH (10:19)
[2018-04-08] MEDS: LORATADINE 10 MG TABLET PO SCH (10:20)
[2018-04-08] MEDS ORDERED: RIVAROXABAN 10 MG TABLET PO SCH ×2 (13:00→17:00)
[2018-04-08 13:07] VITALS: BP 148/60
--- NOTE | 2018-04-14 15:04 | PDOC PROGRESS REPORT ---
Subjective Progress Note for:: 04/07/18 Subjective:: Feeling better Reason For Visit: STATUS POST NAILING OF RIGHT HIP FRACTURE Physical Exam Vital Signs: Temp Pulse Resp BP Pulse Ox 98.4 F 80 17 148/60 H 91 L 04/08/18 12:29 04/08/18 12:29 04/08/18 12:29 04/08/18 12:29 04/08/18 12:29 General appearance: PRESENT: no acute distress, cooperative, disheveled, well- developed, well-nourished Head exam: PRESENT: atraumatic, normocephalic Eye exam: PRESENT: conjunctiva pale, EOMI Mouth exam: PRESENT: dry mucosa, neck supple, tongue midline Neck exam: ABSENT: carotid bruit, JVD, lymphadenopathy, thyromegaly, tracheal deviation, tracheostomy Respiratory exam: PRESENT: decreased breath sounds, prolonged expiratory phas, rhonchi, unlabored. ABSENT: rales, retraction, stridor, tachypnea Cardiovascular exam: PRESENT: RRR, +S1, +S2 Pulses: PRESENT: normal radial pulses GI/Abdominal exam: PRESENT: soft. ABSENT: tenderness Extremities exam: ABSENT: calf tenderness, clubbing, joint swelling, pedal edema Musculoskeletal exam: ABSENT: deformity, dislocation Neurological exam: PRESENT: alert, awake Psychiatric exam: PRESENT: normal mood Skin exam: PRESENT: dry, warm Results Laboratory Results: 04/07/18 05:35 04/05/18 05:01 Impressions: Femur X-Ray 04/03/18 07:24 IMPRESSION: Acute right proximal femur intertrochanteric fracture with mild medial displacement of the lesser trochanter fragment. Knee X-Ray 04/03/18 07:24 IMPRESSION: No acute fracture right knee. Tricompartment osteoarthritis Fluoroscopy 04/04/18 00:00 IMPRESSION: IMAGE(S) OBTAINED DURING PROCEDURE. Hip/Pelvis X-Ray 04/04/18 00:00 IMPRESSION: IMAGE(S) OBTAINED DURING PROCEDURE. Chest X-Ray 04/04/18 06:00 IMPRESSION: Obstructive lung disease Minimal airspace disease in the lingular apex Assessment & Plan - Diagnosis (1) COPD (chronic obstructive pulmonary disease) Qualifiers: COPD type: emphysema Is this a current diagnosis for this admission?: Yes Plan: First incentive spirometry every hour for 12 hours prior to operation and 12 hours postop, continue current bronchodilator therapy, chest x-ray questionable space disease in the lingula Generic Name Dose Route Start Last Admin Trade Name Freq PRN Reason Stop Dose Admin Tiotropium [place] 1 cap 04/04/18 10:00 04/04/18 09:35 Spiriva Handihaler 5 Cap/Kit (18 Mcg/Cap) 05/04/18 09:59 1 cap DAILY ABEL Albuterol/Ipratropium 3 ml 04/03/18 20:00 04/04/18 08:30 Duoneb 3 Ml Ampul NEB 05/03/18 19:59 3 ml RTQ6 ABEL Fluticasone/Salmeterol 1 inh 04/03/18 18:00 04/04/18 09:36 Advair 250-50 Diskus 14 Dose/Diskus IH 05/03/18 17:59 1 inh BID ABEL Just putting a hold on Spiriva and Advair as both a somewhat redundant with the DuoNeb insofar as to have a long-acting muscarinic agent and a long-acting beta agonist (2) Closed comminuted intertrochanteric fracture of proximal end of right femur Qualifiers: Encounter type: initial encounter Qualified Code(s): S72.141A - Displaced intertrochanteric fracture of right femur, initial encounter for closed fracture Is this a current diagnosis for this admission?: Yes Plan: Per orthopedics (3) Dementia Qualifiers: Dementia type: vascular dementia Is this a current diagnosis for this admission?: Yes Plan: As per primary care
== END 2018-04-08 15:00 | DRG 482 ==
LOC: ER 06:17 → EH 13:48 → 4S 16:54 → 4N 04-05 22:09
PROVIDERS: ADMIT Hospitalist; ATTEND Internal Medicine
PROC: 3E0F73Z Introduction of Anti-inflammatory into Respiratory Tract, Via Natural or Artificial Opening (ICD-10-PCS; 2018-04-03)
PROC: 0QS636Z Reposition Right Upper Femur with Intramedullary Internal Fixation Device, Percutaneous Approach (ICD-10-PCS; principal; 2018-04-04 17:00)
DX: S72.141A Displaced intertrochanteric fracture of right femur, initial encounter for closed fracture (principal); I10 Essential (primary) hypertension; Z66 Do not resuscitate; W01.0XXA Fall on same level from slipping, tripping and stumbling without subsequent striking against object, initial encounter; I73.9 Peripheral vascular disease, unspecified; K21.9 Gastro-esophageal reflux disease without esophagitis; M19.90 Unspecified osteoarthritis, unspecified site; J43.9 Emphysema, unspecified; F01.50 Vascular dementia, unspecified severity, without behavioral disturbance, psychotic disturbance, mood disturbance, and anxiety; R23.3 Spontaneous ecchymoses; E78.2 Mixed hyperlipidemia; K59.03 Drug induced constipation; T50.905A Adverse effect of unspecified drugs, medicaments and biological substances, initial encounter; Y92.013 Bedroom of single-family (private) house as the place of occurrence of the external cause; Z79.899 Other long term (current) drug therapy; Z96.652 Presence of left artificial knee joint; Z87.891 Personal history of nicotine dependence; Z88.8 Allergy status to other drugs, medicaments and biological substances
CPT/HCPCS: 01230; 36415; 36600; 71045; 80048; 80053; 82803; 84443; 85025; 85027; 93005; 93010; 93306; 94640; 94799; 96374; 96375; 96376; 99284; C1713; G8978-GP; G8979-GP; G8987-GO; G8988-GO; J0131; J0690; J1170; J1650; J2250; J2270; J2405; J2704; J3010; J3490; J7030; J7120; J7620

== ENCOUNTER → 2019-04-10 | Outpatient (CLI) | payer MEDICARE, OTHER ==
[2019-04-10 09:53] LABS: ABSOLUTE BASOPHILS # (AUTO) 0.1 10^3/uL (0.0-0.2); ABSOLUTE EOSINOPHILS # (AUTO) 0.6 10^3/uL (0.0-0.6); ABSOLUTE LYMPHOCYTES (AUTO) 1.9 10^3/uL (0.5-4.7); ABSOLUTE MONOCYTES (AUTO) 0.7 10^3/uL (0.1-1.4); ABSOLUTE NEUT (AUTO) 4.6 10^3/uL (1.7-8.2); BASOPHILS % (AUTO) 0.8 % (0-2); EOSINOPHILS % (AUTO) 7.8 % (0-6); HEMATOCRIT 43.8 % (37.9-51.0); LYMPHOCYTES % (AUTO) 24.2 % (13-45); MEAN CORPUSCULAR HEMOGLOBIN 29.3 pg (27.0-33.4); MEAN CORPUSCULAR HGB CONC 34.2 g/dL (32.0-36.0); MEAN CORPUSCULAR VOLUME 86 fl (80-97); MONOCYTES % (AUTO) 8.7 % (3-13); PLATELET COUNT 216 10^3/uL (150-450); RED BLOOD COUNT 5.11 10^6/uL (4.35-5.55); RED CELL DISTRIBUTION WIDTH 15.2 % (11.5-14.0); SEGMENTED NEUTROPHILS % (AUTO) 58.5 % (42-78); TOTAL CELLS COUNTED % (AUTO) 100 %; WHITE BLOOD COUNT 7.9 10^3/uL (4.0-10.5)
[2019-04-10 10:27] LABS: ALBUMIN 3.9 g/dL (3.5-5.0); ALKALINE PHOSPHATASE 65 U/L (38-126); ANION GAP 9 (5-19); ASPARTATE AMINO TRANSFERASE 18 U/L (17-59); BILIRUBIN,DIRECT 0.1 mg/dL (0.0-0.4); BILIRUBIN,TOTAL 0.9 mg/dL (0.2-1.3); BLOOD UREA NITROGEN 20 mg/dL (7-20); CALCIUM 10.2 mg/dL (8.4-10.2); CARBON DIOXIDE 29 mmol/L (22-30); CHLORIDE 107 mmol/L (98-107); GLUCOSE 99 mg/dL (75-110); POTASSIUM 4.3 mmol/L (3.6-5.0); TOTAL PROTEIN 6.7 g/dL (6.3-8.2); TRIGLYCERIDES 89 mg/dL (<150)
[2019-04-10 10:38] LABS: DIRECT LDL 87 mg/dL (<100)
== END ==
LOC: OD 09:13
PROVIDERS: ATTEND Internal Medicine
DX: I10 Essential (primary) hypertension (principal); E78.5 Hyperlipidemia, unspecified; J44.9 Chronic obstructive pulmonary disease, unspecified; R53.83 Other fatigue
CPT/HCPCS: 36415; 80053; 80061; 84443; 85025